=== PATIENT | male | born 1970 | race Hispanic/Latino ===

== ENCOUNTER 2018-10-06 10:16 | Day surgery (SDC) | payer BC ==
--- NOTE | 2018-10-04 17:11 | EKG ---
Test Date: 2018-10-04 Test Time: 12:36:23 Interior Specialist: IRENE MEASUREMENT RESULTS: Intervals: Rate: 65 CT: 158 QRSD: 106 QT: 402 QTc: 418 Diamond: P: -2 CT: 158 QRS: -39 T: 42 INTERPRETIVE STATEMENTS: Normal sinus rhythm Left axis deviation Abnormal ECG No previous ECG available for comparison Electronically Signed On 10-04-18 17:10:27 CDT by Westley Wallis
[2018-10-06] MEDS: OXYMETAZOLINE HCL 0.05% 15ML NAS ONE ×3 (10:35→10:47)
[2018-10-06] MEDS ORDERED: Ringers Lactate 1,000 ML IV ONE ×2 (10:43→14:30)
--- OUTSIDE RECORDS SUMMARY | 2018-10-06 10:46 | XMS REPORT | Clinical Summary ---
:1970 Author Organization [facility] Address [address] [place] [address] Care Team Providers Name Role Phone Jun Laws MD Primary Care Provider Allergies Not on File Medications Not on file Active Problems Not on file Encounters Date Type Specialty Care Team Description 03/02/2018 Hospital Encounter Radiology Brandon Johnston MD New daily persistent headache 03/02/2018 Transcribe Orders Access Brandon Johnston MD New daily persistent headache (Primary Dx) after 10/05/2017 Social History Tobacco Use Types Packs/Day Years Used Date Never Assessed Sex Assigned at Date Recorded Not on file Job Start Date Occupation Industry Not on file Not on file Not on file Travel History Travel Start Travel End No recent travel history available. Last Filed Vital Signs Not on file Plan of Treatment Health Maintenance Due Date Last Done Comments INFLUENZA VACCINE 01/19/2019 Procedures Procedure Name Priority Date/Time Associated Diagnosis Comments CT HEAD WO CONTRAST Routine 03/02/2018 8:15 PM New daily persistent Results for this CDT headache procedure are in the results section. after 10/05/[address] Head Wo Contrast (03/02/2018 8:15 PM CDT) Narrative Performed At EXAMINATION: CT HEAD WO CONTRAST [facility] COMPARISON: None CLINICAL HISTORY G44.52 New daily persistent headache (ndph), g44.52. TECHNIQUE: Non-contrast CT scan of the head with thin-section contiguous transaxial images from the skull base to the vertex. CT scans are performed using radiation dose reduction techniques. Technical factors are evaluated and adjusted to ensure appropriate moderation of exposure. Automated dose management technology is applied to adjust radiation exposure while achieving a highly diagnostic quality image. FINDINGS: Nonenhanced emergency cranial CT was performed at approximately 1917 hours. There is occipital craniotomy. 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 There is encephalization the bilateral cerebellar hemispheres with volume loss. There is compensatory atrophic dilatation of the fourth ventricle. Supratentorially, there is a right lateral ventricular shunt catheter entering via right parietal solitario hole. The lateral and third ventricles are slitlike possibly on the basis of over shunting. There is suspicion of minimal subdural hygroma overlying the high right frontoparietal vertex. The catheter fragment is seen in the right frontal white matter with surrounding encephalomalacia. There is no midline shift. IMPRESSION: Postoperative changes related to related to clipping of a left PICA aneurysm. Atrophic changes in the cerebellum with volume loss. Status post shunting of the right lateral ventricle with slitlike ventricular system suggestive of over shunting. Suspicion of minimal segment dural hygroma overlying the right frontoparietal cortex without mass effect. Small catheter fragment in the right frontal white matter with surrounding and subtle malacic changes. No acute hemorrhage or midline shift. [facility]-[id number] Procedure Note [facility], Radiology Results Incoming - 03/02/2018 8:21 PM CDT EXAMINATION: CT HEAD WO CONTRAST COMPARISON: None CLINICAL HISTORY G44.52 New daily persistent headache (ndph), g44.52. TECHNIQUE: Non-contrast CT scan of the head with thin-section contiguous transaxial images from the skull base to the vertex. CT scans are performed using radiation dose reduction techniques. Technical factors are evaluated and adjusted to ensure appropriate moderation of exposure. Automated dose management technology is applied to adjust radiation exposure while achieving a highly diagnostic quality image. FINDINGS: Nonenhanced emergency cranial CT was performed at approximately 1917 hours. There is occipital craniotomy. 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 There is encephalization the bilateral cerebellar hemispheres with volume loss. There is compensatory atrophic dilatation of the fourth ventricle. Supratentorially, there is a right lateral ventricular shunt catheter entering via right parietal solitario hole. The lateral and third ventricles are slitlike possibly on the basis of over shunting. There is suspicion of minimal subdural hygroma overlying the high right frontoparietal vertex. The catheter fragment is seen in the right frontal white matter with surrounding encephalomalacia. There is no midline shift. IMPRESSION: Postoperative changes related to related to clipping of a left PICA aneurysm. Atrophic changes in the cerebellum with volume loss. Status post shunting of the right lateral ventricle with slitlike ventricular system suggestive of over shunting. Suspicion of minimal segment dural hygroma overlying the right frontoparietal cortex without mass effect. Small catheter fragment in the right frontal white matter with surrounding and subtle malacic changes. No acute hemorrhage or midline shift. [facility]-[id number] Performing Organization Address City/State/Zipcode Phone Number [facility] [address] [place] [address] after 10/05/2017 Insurance Payer Benefit Plan / Group Subscriber ID Type Phone Address AETNA AETNA PPO OPEN CHOICE xxxxxxxxxx PPO Advance Directives Patient has advance care planning documents on file. For more information, please contact:Kelton Rhodes[address] [place] [address]
[2018-10-06] MEDS ORDERED: NA CHLORIDE 0.9% 500 ML ONE (11:51)
[2018-10-06] MEDS ORDERED: LIDOCAINE 1% W/EPI 1:100,000 MDV 50 ML VIAL ONE (11:51)
[2018-10-06] MEDS ORDERED: OXYMETAZOLINE HCL 0.05% 15ML NAS ONE ×2 (11:51→12:23)
[2018-10-06] MEDS ORDERED: PROPOFOL 200 MG/20 ML VIAL IV ONE (12:00)
[2018-10-06] MEDS ORDERED: FENTANYL CITR 100 MCG/2 ML ONE (12:00)
[2018-10-06] MEDS ORDERED: MIDAZOLAM HCL 2 MG/2 ML INJ ONE (12:01)
[2018-10-06] MEDS ORDERED: ROCURONIUM 50 MG/5 ML VIAL IV ONE (12:01)
[2018-10-06] MEDS ORDERED: LIDOCAINE 2% MPF 5 ML VIAL ONE (12:01)
[2018-10-06] MEDS ORDERED: FENTANYL CITR 250 MCG/5 ML ONE (12:10)
[2018-10-06] MEDS ORDERED: LIDOCAINE 2%-JELLY **30 ML TUBE ONE (12:16)
[2018-10-06] MEDS ORDERED: NS 0.9% VIAL 10 ML ONE (13:20)
[2018-10-06] MEDS ORDERED: Phenylephrine HCl 10 MG/ML 1 ML VIAL ONE (13:20)
[2018-10-06] MEDS ORDERED: ONDANSETRON 4 MG/2 ML VIAL ONE (15:04)
[2018-10-06] MEDS ORDERED: PROMETHAZINE 25 MG/ML VIAL ONE (15:56)
[2018-10-06] MEDS: HYDROMORPHONE HCL 1 MG/ML INJ ONE ×2 (16:04→16:09)
[2018-10-06 18:44] VITALS: BP 137/80; TEMP 98.7
[2018-10-06 18:45] VITALS: O2SAT 97
--- NOTE | 2018-10-07 07:38 | P.BOP ---
Preoperative diagnosis: CRSwNP Postoperative diagnosis: same Primary procedure: R NE w/ total ethmoid with sphenoid and removal of tissue Secondary procedure: R NE w/ max with tissue removal Other procedure(s): L NE w/ max and total ethmoid; use of Darudar CT navigation Aquaculture Farmer: NONE,NONE Specimen: B sinus contents, culture R nasal cavity Findings: severe inflammtion and infection Anesthesia: General Complications: None Implants: Propel contour to R sphenoid, Propel to B ethmoid Fluids & blood products: see bon. record Transferred to: Recovery Room Condition: Good
--- NOTE | 2018-10-08 14:15 | OP ---
Date of Procedure: 10/06/2018 Surgeon: Nadya Colindres MD Cash Poster: None. Preoperative Diagnoses: Chronic rhinosinusitis with polyps. Postoperative Diagnoses: Chronic rhinosinusitis with polyps. Procedures Performed: 1.Left maxillary antrostomy. 2.Left total ethmoidectomy. 3.Right maxillary antrostomy with tissue removal. 4.Right total ethmoidectomy with sphenoidotomy including removal of tissue from sphenoid sinus. 5.CT navigation, cranial, extradural. Indication For Procedure: Mr. Alegria has a long history of large maxillary polyp clinically concerni ng for an antral choanal polyp. He was treated with maximal medical therapy and improved moderately, but without complete resolution of his symptoms. He re-presented earlier this year with persistent and recurrent symptoms. He was treated with maximal medical therapy in July and underwent post-t reatment CT scan demonstrating persistent opacification of the right sphenoid, ethmoid, and maxillary sinuses, as well as the left ethmoid sinuses. The risks, benefits, and alternatives were discussed with the patient who agreed to proceed. Description Of Procedure: The patient was brought to the operating room. He was placed under genera l anesthesia via oral endotracheal tube. The head of bed was turned 90 degrees. The nasal hairs wer e trimmed and the nasal cavity was packed with Afrin-soaked pledgets. Upon placement of the pledgets , significant mucopurulent secretions were noted, and a culture was collected prior to the placement of the pledgets. The [employer] headpiece was secured to the patient's forehead and the post-treatment CT scan was loaded into the system. Registration was performed by surface matching with the laser p ointer and accuracy was confirmed by [id number] matching including the tip of the nose, the base of the columella, and the bilateral medial and lateral canthi as well as the glabella, and accuracy w as felt to be very good. The 0-degree endoscope was then used to perform a nasal endoscopy. The lef t side was examined first. The septum was mildly deviated to the left, but no septoplasty was requir ed. There were mild purulent secretions from the middle meatus. After suctioning, the middle turbin ate was medialized. The left middle turbinate was noted to have a riley, which was opacified. A si ckle knife was used to make an incision through the anterior aspect. Endoscopic scissors were used t o cut superiorly and inferiorly along the riley and a Blakesley was used to remove the lateral aspec t of the riley. The mucosa within the riley bullosa was noted to be significantly edematous. The maxillary antrostomy was then created by removal of the uncinate process using the backbiter and 90-d egree Blakesley. There was an accessory ostium and removal of the bridging tissue between the access ory os and natural os was accomplished using the 90-degree Blakesley. After opening of the sinus, e left maxillary mucosa was noted to be smooth with minimal inflammation and no evidence of polyps. The straight navigation suction and 0 degree endoscope was then used to initiate the left ethmoidecto my. The ethmoid bulla was entered using a curette and bony partitions were removed using straight an d 45-degree Blakesley. Bony partitions were then removed. The patient's ethmoids were then further dissected with the assistance of a 30 and 70 degrees endoscope in order to remove the inflamed tissue s. During removal, there was significantly edematous and inflamed mucosa and copious amounts of thic k purulent material. During dissection, a defect in the lamina papyracea was appreciated. This was noted to be a concern on his preoperative imaging and intraoperative findings were consistent with e preoperative CT scan. With gentle palpation of the globe, the orbital septum in this area appeared to be intact and there was no evidence of orbital flap extending into the sinuses, but further disse ction in this area was performed very carefully in order to avoid impinging on the orbit. The patien t had no significant development of the left frontal recess and after adequate dissection of the ethm oid, the ethmoid cavity was packed with Afrin-soaked pledgets, and attention was turned to the right side. On the right, there was a large polyp which appeared to be coming from the middle meatus which completely obstructed the nasal cavity. This polyp was injected with local anesthetic and was grasp ed at the edge of the middle meatus and removed in order to open up the channel in the nasal cavity. The 0 and 30 degree and 70 degree scopes were then used in visualizing and opening and cleaning out of the right maxillary sinus. There was copious polypoid and very inflamed tissue with excessive naif y thick purulent secretions within the right maxillary sinus. After removal of the polyps using a 90 -degree Blakesley and maxillary utilizer, the maxillary sinus was forcefully irrigated with multiple aliquots of sterile saline in order to remove as much of the purulent debris as feasible. The maxill vicente antrostomy was enlarged by removal of tissue anteriorly in order to provide better access to the anterior-most reaches of the maxillary sinus. The ethmoid partitions were then dissected using a cur ette and bony partitions removed using a straight 45 and 90-degree Blakesley. The navigation suction was used intermittently throughout the procedure in order to help identify the lamina as well as the skull base superiorly. After completion of the ethmoidectomy, a 70-degree scope was used for visual ization of the frontal sinus. The frontal sinus' natural opening appeared to be adequate without sig nificant evidence of inflammation or extension of polypoid tissue into this area, therefore, no forma l frontal sinusotomy was performed in this case. Attention was then turned to the sphenoid. Using a transethmoidal approach, the os of the sphenoid was identified using the navigation suction. There was pus and copious amounts of polypoid tissue within the sinus. The sinus ostium was enlarged and p olypoid tissue removed using a microdebrider. After adequate removal of the polypoid tissue, the rem aining lining of the sphenoid sinus was significantly inflamed and swollen, but decision was made not to de-mucosalize the sinus in order to avoid extensive crusting or prolonged healing. The sphenoid sinus was copiously irrigated with multiple aliquots of sterile saline until the drainage appeared cl ear. Afrin-soaked pledgets were applied intermittently throughout the case in order to control bleed ing as necessary. After completion of the dissection, all the pledgets were then removed and the are a was carefully examined. A Propel steroid eluting stent was placed within the left ethmoid cavity i n order to apply a steroid into the mucosa and reduce the degree of inflammation during the initial p ostop period. The stent also acted to stabilize and medialize the middle turbinate, which was somewh at floppy after resection of the riley bullosa and dissection of the anterior and posterior ethmoids . On the right side due to the degree of inflammation at and within the sphenoid sinus, a Propel Con tour stent was placed at the sphenoid os in order to provide local steroid delivery as well as a phys ical barrier to prevent contraction of said sphenoid os. The Contour stent was loaded into the stand cal Propel delivery device in order to be placed within the sphenoid. Finally, a second standard Pro pel stent was placed within the right ethmoid to stabilize the right middle turbinate and prevent lat eralization as well as provide local drug delivery. After completion of the procedure, the patient's globes were examined by palpation. There was no excessive firmness or proptosis noted. The pupils were equal, round, and reactive. The nasopharynx was thoroughly suctioned. The patient was returned to care of Anesthesia for awakening extubation, which proceeded without difficul ty. LÁZARO/ALFREDO Voice ID: [id number] Report ID: [id number]
== END 2018-10-06 18:00 | disposition home or self-care (01) ==
LOC: OR 10:16
PROVIDERS: ATTEND Otolaryngology
PROC: 0NBF4ZZ Excision of Right Ethmoid Bone, Percutaneous Endoscopic Approach (ICD-10-PCS; 2018-10-06)
PROC: 09BQ8ZZ Excision of Right Maxillary Sinus, Via Natural or Artificial Opening Endoscopic (ICD-10-PCS; 2018-10-06)
PROC: 09BW8ZZ Excision of Right Sphenoid Sinus, Via Natural or Artificial Opening Endoscopic (ICD-10-PCS; 2018-10-06)
PROC: 09BR8ZZ Excision of Left Maxillary Sinus, Via Natural or Artificial Opening Endoscopic (ICD-10-PCS; 2018-10-06)
PROC: 09BX8ZZ Excision of Left Sphenoid Sinus, Via Natural or Artificial Opening Endoscopic (ICD-10-PCS; 2018-10-06)
PROC: 8E09XBZ Computer Assisted Procedure of Head and Neck Region (ICD-10-PCS; 2018-10-06)
PROC: 0NBG4ZZ Excision of Left Ethmoid Bone, Percutaneous Endoscopic Approach (ICD-10-PCS; principal; 2018-10-06 12:00)
DX: J32.4 Chronic pansinusitis (principal); J33.8 Other polyp of sinus
CPT/HCPCS: 87070; 87077; 87186; 87205; 88304; 88305; 93005; J1170; J2250; J2370; J2405; J2550; J2704; J3010

== ENCOUNTER 2018-10-09 17:23 | Observation (INO) | payer BC ==
--- OUTSIDE RECORDS SUMMARY | 2018-10-09 17:26 | XMS REPORT | Clinical Summary ---
:1970 Author Organization [facility] [employer] Address [address] [place] [address] Care Team Providers Name Role Phone Jun Laws MD Primary Care Provider Allergies Not on File Medications Not on file Active Problems Not on file Encounters Date Type Specialty Care Team Description 03/02/2018 Hospital Encounter Radiology Brandon Johnston MD New daily persistent headache 03/02/2018 Transcribe Orders Access Brandon Johnston MD New daily persistent headache (Primary Dx) after 10/08/2017 Social History Tobacco Use Types Packs/Day Years [...] procedure are in the results section. after 10/08/[address] Head Wo Contrast (03/02/2018 8:15 [...] changes. No acute hemorrhage or midline shift. [facility]-[id number] Procedure Note [facility], Radiology Results Incoming - 03/02/2018 8:21 PM [...] changes. No acute hemorrhage or midline shift. [facility]-[id number] Performing Organization Address City/State/Zipcode Phone Number [facility] [address] [place] [address] after 10/08/2017 Insurance Payer Benefit Plan / Group Subscriber ID Type Phone Address AETNA AETNA PPO OPEN CHOICE xxxxxxxxxx PPO Advance Directives Patient has advance care planning documents on file. For more information, please contact:Kelton Rhodes[address] [place] [address]
--- NOTE | 2018-10-09 18:50 | EDPHYS ---
Physician Documentation [facility] Name: Moises Alegria Age: 48 yrs Sex: Male : 1970 Arrival Date: 10/09/2018 Time: 17:26 Bed 30 Private MD: Nadya Colindres J ED Physician Duy Solomon HPI: 10/09 18:43 This 48 yrs old Male presents to ER via Ambulatory with complaints of Post jovon Surgical Pain. 18:43 The patient is experiencing pain. Onset: The symptoms/episode began/occurred 3 day(s) jovon ago. Aggravated by light, opening eye, pressure. Associated signs and symptoms: Pertinent positives: headache, runny nose. The patient presents with a foreign body, located in both nares nasal trauma, from surgery . Modifying factors: The symptoms are alleviated by lying down, the symptoms are aggravated by blowing nose, sitting up. Associated signs and symptoms: Loss of consciousness: the patient experienced no loss of consciousness, Pertinent positives: lightheadedness. Historical: - Allergies: 17:34 No Known Allergies; sv - PMHx: 17:34 Polycystic kidney disease; Hypertension; Grade 4 aneurysm; sv - PSHx: 17:34 [employer]AY [employer] shunt; sv - Immunization history:: Adult Immunizations up to date. - Social history:: Smoking status: Patient/guardian denies using tobacco. - Family history:: not pertinent. - Ebola Screening: : Patient negative for fever greater than or equal to 101.5 degrees Fahrenheit, and additional compatible Ebola Virus Disease symptoms Patient denies exposure to infectious person Patient denies travel to an Ebola-affected area in the 21 days before illness onset. ROS: 18:43 Constitutional: Negative for fever, chills, and weight loss, ENT: Negative for injury, jovon pain, and discharge, Neck: Negative for injury, pain, and swelling, Cardiovascular: Negative for chest pain, palpitations, and edema, Respiratory: Negative for shortness of breath, cough, wheezing, and pleuritic chest pain, Abdomen/GI: Negative for abdominal pain, nausea, vomiting, diarrhea, and constipation, Back: Negative for injury and pain, : Negative for injury, bleeding, discharge, and swelling, MS/Extremity: Negative for injury and deformity, Skin: Negative for injury, rash, and discoloration, Psych: Negative for depression, anxiety, suicide ideation, homicidal ideation, and hallucinations, Allergy/Immunology: Negative for hives, rash, and allergies, Hematologic/Lymphatic: Negative for swollen nodes, abnormal bleeding, and unusual bruising. 18:43 Eyes: Positive for pain, swelling, of the right upper eyelid, right outer canthus, right inner canthus and right lower eyelid. Exam: 18:43 Constitutional: This is a well developed, well nourished patient who is awake, alert, jovon and in no acute distress. Head/Face: Normocephalic, atraumatic. Neck: Trachea midline, no thyromegaly or masses palpated, and no cervical lymphadenopathy. Supple, full range of motion without nuchal rigidity, or vertebral point tenderness. No Meningismus. Chest/axilla: Normal chest wall appearance and motion. Nontender with no deformity. No lesions are appreciated. Cardiovascular: Regular rate and rhythm with a normal S1 and S2. No gallops, murmurs, or rubs. Normal PMI, no JVD. No pulse deficits. Respiratory: Lungs have equal breath sounds bilaterally, clear to auscultation and percussion. No rales, rhonchi or wheezes noted. No increased work of breathing, no retractions or nasal flaring. Abdomen/GI: Soft, non-tender, with normal bowel sounds. No distension or tympany. No guarding or rebound. No evidence of tenderness throughout. Back: No spinal tenderness. No costovertebral tenderness. Full range of motion. Male : Normal genitalia with no discharge or lesions. Skin: Warm, dry with normal turgor. Normal color with no rashes, no lesions, and no evidence of cellulitis. MS/ Extremity: Pulses equal, no cyanosis. Neurovascular intact. Full, normal range of motion. Neuro: Awake and alert, GCS 15, oriented to person, place, time, and situation. Cranial nerves II-XII grossly intact. Motor strength 5/5 in all extremities. Sensory grossly intact. Cerebellar exam normal. Normal gait. Psych: Awake, alert, with orientation to person, place and time. Behavior, mood, and affect are within normal limits. 18:43 Eyes: Pupils: no acute changes, equal, round, and reactive to light and accomodation, Extraocular movements: intact throughout, Conjunctiva: normal, no acute changes, Corneas: are normal. 18:43 ENT: Nose: Nasal mucosa: edematous, erythematous, Mouth: Oral mucosa: normal, pink and intact, moist, Gums: normal with healthy appearance, Tongue: is normal, drooling, is not appreciated. 18:47 Neck: Trachea: is midline with no obvious abnormalities, no acute changes, jovon ROM/movement: is normal, no acute changes, Meningeal signs: are not present, Kernig's sign is negative, Brudzinski's sign is negative. Vital Signs: 17:34 BP 150 / 99; Pulse 93; Resp 18; Temp 98.7; Pulse Ox 97% ; Weight 113.4 kg; Height 5 ft. sv 10 in. (177.80 cm); Pain 8/10; 20:19 BP 136 / 101 LA Supine; Pulse 81; Resp 18 S; Pulse Ox 97% on R/A; rv 17:34 Body Mass Index 35.87 (113.40 kg, 177.80 cm) sv MDM: 18:25 Patient medically screened. [facility] 18:43 Data reviewed: vital signs, nurses notes, lab test result(s). [facility] 10/09 18:40 Order name: CBC with Diff; Complete Time: 20:17 [facility] 10/09 18:40 Order name: Comprehensive Metabolic Panel; Complete Time: 20:17 [facility] Administered Medications: 19:20 Drug: NS 0.9% 500 ml Route: IV; Rate: bolus; Site: right antecubital; rv 19:31 Follow up: IV Status: Completed infusion; IV Intake: 500ml rv 19:20 Drug: fentaNYL (PF) 25 mcg Route: IVP; Site: right antecubital; rv 20:20 Follow up: Response: Pain is unchanged, physician notified rv 19:20 Drug: Zofran 4 mg Route: IVP; Site: right forearm; rv 20:20 Follow up: Response: No adverse reaction rv 19:28 Drug: vancoMYCIN 1 grams Route: IVPB; Infused Over: 2 hrs; Site: right forearm; rv 20:21 Follow up: IV Status: Completed infusion; IV Intake: 250ml rv 19:31 Drug: NS 0.9% 1000 ml Route: IV; Rate: 125 ml/hr; Site: right forearm; rv 20:20 Follow up: IV Status: Infusion continued upon admission; IV Intake: 250ml rv 19:32 Drug: fentaNYL (PF) 25 mcg Route: IVP; Site: right forearm; rv 20:20 Follow up: Response: Pain is unchanged, physician notified; ICE PACK APPLIED rv 20:19 Drug: Zosyn 3.375 grams Route: IVPB; Infused Over: 60 mins; Site: right forearm; rv 20:21 Follow up: IV Status: Infusion continued upon admission rv 20:21 Not Given (Duplicate Order): NS 0.9% 1000 ml IV at 125 ml/hr continuous rv Disposition: 10/09/18 18:49 Hospitalization ordered by Nadya Colindres for Inpatient Admission. Preliminary diagnosis are Acute sinusitis - sp polypectomy, sinus surgery, Ocular pain, right eye. - Bed requested for Telemetry/MedSurg (Inpatient). - Status is Inpatient Admission. rv - Condition is Fair. - Problem is new. - Symptoms have improved. UTI on Admission? No Signatures: Dispatcher [employer] Nadya Andersen, RN RN Duy Gonzalez MD MD cha Roszak, Josh, PA PA [id number] Garcia, Cindy, RN RN Carlin Fonseca RN RN rv Corrections: (The following items were deleted from the chart) 20:11 18:49 Hospitalization Ordered by Nadya Colindres MD for Inpatient Admission. cg Preliminary diagnosis is Acute sinusitis - sp polypectomy, sinus surgery; Ocular pain, right eye. Bed requested for Telemetry/MedSurg (Inpatient). Status is Inpatient Admission. Condition is Fair. Problem is new. Symptoms have improved. UTI on Admission? No. [facility] 20:34 20:11 10/09/2018 18:49 Hospitalization Ordered by Nadya Colindres MD for Inpatient rv Admission. Preliminary diagnosis is Acute sinusitis - sp polypectomy, sinus surgery; Ocular pain, right eye. Bed requested for Telemetry/MedSurg (Inpatient). Status is Inpatient Admission. Condition is Fair. Problem is new. Symptoms have improved. UTI on Admission? No. cg
--- NOTE | 2018-10-09 18:50 | ER ---
Nurse's Notes [facility] Name: Moises Alegria Age: 48 yrs Sex: Male : 1970 Arrival Date: 10/09/2018 Time: 17:26 Bed 30 Private MD: Nadya Colindres J Diagnosis: Acute sinusitis-sp polypectomy, sinus surgery;Ocular pain, right eye Presentation: 10/09 17:32 Presenting complaint: Patient states: Dr Colindres performed surgery on having a sv nasal polyp removed and saw her today and sent him here for IV abx. c/o right eye swelling/pain x 2 days. Transition of care: patient was not received from another setting of care. Onset of symptoms was October 07, 2018. Care prior to arrival: None. 17:32 Method Of Arrival: Ambulatory sv 17:32 Acuity: VICK 3 sv 19:22 Risk Assessment: Do you want to hurt yourself or someone else? Patient reports no rv desire to harm self or others. Initial Sepsis Screen: Does the patient meet any 2 criteria? No. Patient's initial sepsis screen is negative. Does the patient have a suspected source of infection? No. Patient's initial sepsis screen is negative. Historical: - Allergies: 17:34 No Known Allergies; sv - PMHx: 17:34 Polycystic kidney disease; Hypertension; Grade 4 aneurysm; sv - PSHx: 17:34 [employer] shunt; sv - Immunization history:: Adult Immunizations up to date. - Social history:: Smoking status: Patient/guardian denies using tobacco. - Family history:: not pertinent. - Ebola Screening: : Patient negative for fever greater than or equal to 101.5 degrees Fahrenheit, and additional compatible Ebola Virus Disease symptoms Patient denies exposure to infectious person Patient denies travel to an Ebola-affected area in the 21 days before illness onset. Screenin:22 Abuse screen: Denies threats or abuse. Denies injuries from another. Nutritional rv screening: No deficits noted. Tuberculosis screening: No symptoms or risk factors identified. Fall Risk None identified. Assessment: 18:23 General: Appears in no apparent distress. uncomfortable, Behavior is calm, cooperative. rv Pain: Complains of pain in right eye. Neuro: Level of Consciousness is awake, alert, obeys commands, Oriented to person, place, time, situation. Cardiovascular: Capillary refill < 3 seconds. Respiratory: Airway is patent. GI: No signs and/or symptoms were reported involving the gastrointestinal system. : No signs and/or symptoms were reported regarding the genitourinary system. EENT: Reports pain in right eye. Derm: Skin is intact. Vital Signs: 17:34 BP 150 / 99; Pulse 93; Resp 18; Temp 98.7; Pulse Ox 97% ; Weight 113.4 kg; Height 5 ft. sv 10 in. (177.80 cm); Pain 8/10; 20:19 BP 136 / 101 LA Supine; Pulse 81; Resp 18 S; Pulse Ox 97% on R/A; rv 17:34 Body Mass Index 35.87 (113.40 kg, 177.80 cm) sv ED Course: 17:26 Patient arrived in ED. as 17:26 Nadya Colindres MD is Private Physician. as 17:33 Triage completed. sv 17:34 Arm band placed on. sv 18:22 Carlin Fonseca RN is Primary Nurse. rv 18:25 Duy Solomon MD is Attending Physician. jovon 18:48 Nadya Colindres MD is Hospitalizing Provider. jovon 19:00 Inserted saline lock: 20 gauge in right forearm, using aseptic technique. Blood rv collected. 19:22 Patient has correct armband on for positive identification. Bed in low position. Call rv light in reach. Side rails up X 1. Pulse ox on. NIBP on. 20:18 No provider procedures requiring assistance completed. Patient admitted, IV remains in rv place. Administered Medications: 19:20 Drug: NS 0.9% 500 ml Route: IV; Rate: bolus; Site: right antecubital; rv 19:31 Follow up: IV Status: Completed infusion; IV Intake: 500ml rv 19:20 Drug: fentaNYL (PF) 25 mcg Route: IVP; Site: right antecubital; rv 20:20 Follow up: Response: Pain is unchanged, physician notified rv 19:20 Drug: Zofran 4 mg Route: IVP; Site: right forearm; rv 20:20 Follow up: Response: No adverse reaction rv 19:28 Drug: vancoMYCIN 1 grams Route: IVPB; Infused Over: 2 hrs; Site: right forearm; rv 20:21 Follow up: IV Status: Completed infusion; IV Intake: 250ml rv 19:31 Drug: NS 0.9% 1000 ml Route: IV; Rate: 125 ml/hr; Site: right forearm; rv 20:20 Follow up: IV Status: Infusion continued upon admission; IV Intake: 250ml rv 19:32 Drug: fentaNYL (PF) 25 mcg Route: IVP; Site: right forearm; rv 20:20 Follow up: Response: Pain is unchanged, physician notified; ICE PACK APPLIED rv 20:19 Drug: Zosyn 3.375 grams Route: IVPB; Infused Over: 60 mins; Site: right forearm; rv 20:21 Follow up: IV Status: Infusion continued upon admission rv 20:21 Not Given (Duplicate Order): NS 0.9% 1000 ml IV at 125 ml/hr continuous rv Intake: 19:31 IV: 500ml; Total: 500ml. rv 20:20 IV: 250ml; Total: 750ml. rv 20:21 IV: 250ml; Total: 1000ml. rv Outcome: 18:49 Decision to Hospitalize by Provider. jovon 20:18 Admitted to Med/surg accompanied by nurse, via wheelchair, room 221, with chart, Report rv called to [facility] 20:18 Condition: stable 20:18 Instructed on the need for admit, Demonstrated understanding of instructions. 20:34 Patient left the ED. rv Signatures: Nadya Campos, RN RN Duy Gonzalez MD MD cha Martinez, Amelia as Vicente, Ronaldo, RN RN rv
[2018-10-09] MEDS ORDERED: VANCOMYCIN 1 GM/VIAL ONE ×2 (19:04→22:33)
[2018-10-09] MEDS ORDERED: ONDANSETRON 4 MG/2 ML VIAL ONE (19:04)
[2018-10-09] MEDS ORDERED: PIPER/TAZO/NS 3.375gm 3.375 GM/100 ML BAG ONE ×2 (19:04→20:36)
[2018-10-09] MEDS ORDERED: NA CHLORIDE 0.9% 1,000 ML ONE (19:04)
[2018-10-09] MEDS ORDERED: NA CHLORIDE 0.9% 250 ML ONE ×2 (19:04→22:35)
[2018-10-09] MEDS ORDERED: FENTANYL CITR 100 MCG/2 ML ONE (19:04)
[2018-10-09 19:19] LABS: Absolute Lymphocytes (CBC) 1.3 K/uL (0.7-4.9); Absolute Monocytes 0.7 K/uL (0.1-1.3); Absolute Neutrophil 7.4 K/uL (1.8-8.0); Basophils % 0.8 % (0-1.3); Eosinophils % 2.6 % (0-4.4); Hematocrit 41.1 % (39.6-49.0); Lymphocytes % 13.7 % (15.3-44.8); MPV 8.2 fL (7.6-11.3); Monocytes % 7.1 % (3.3-12.3); RBC Red Blood Cell Count 4.72 M/uL (4.33-5.43)
[2018-10-09 19:35] LABS: Albumin 3.6 g/dL (3.4-5.0); Bilirubin Total 0.5 mg/dL (0.2-1.0); Potassium 3.5 mmol/L (3.5-5.1); Protein, Total 8.1 g/dL (6.4-8.2)
[2018-10-09] MEDS ORDERED: ACETAMINOPHEN 500 MG TAB PO PRN (20:41)
[2018-10-09] MEDS ORDERED: ONDANSETRON 4 MG/2 ML VIAL IV PRN (20:41)
[2018-10-09 20:54] VITALS: BMI 35.7
[2018-10-09] MEDS: DEXAMETHASONE 10 MG/ML VIAL IV SCH (21:48)
[2018-10-09] MEDS: NA CHLORIDE 0.9% 1,000 ML IV SCH (21:48)
[2018-10-09] MEDS: FAMOTIDINE 20 MG/2 ML VIAL IV SCH (21:48)
[2018-10-09] MEDS ORDERED: VANCOMYCIN/NS 1 gm 1 GM/250 ML BAG IVPB ONE (22:30)
[2018-10-10] MEDS: PIPER/TAZO/NS 3.375gm 3.375 GM/100 ML BAG IVPB SCH ×2 (00:38→05:29)
[2018-10-10] MEDS: MORPHINE 4 MG/ML SYR IV PRN ×2 (00:43→06:44)
[2018-10-10 03:25] VITALS: O2SAT 96
[2018-10-10] MEDS: DEXAMETHASONE 10 MG/ML VIAL IV SCH ×2 (05:28→12:55)
[2018-10-10 05:58] LABS: Absolute Lymphocytes (CBC) 0.8 K/uL (0.7-4.9); Absolute Monocytes 0.2 K/uL (0.1-1.3); Absolute Neutrophil 7.2 K/uL (1.8-8.0); Basophils % 0.5 % (0-1.3); Eosinophils % 0.1 % (0-4.4); Hematocrit 37.1 % (39.6-49.0); Lymphocytes % 9.3 % (15.3-44.8); MPV 8.1 fL (7.6-11.3); Monocytes % 2.5 % (3.3-12.3); RBC Red Blood Cell Count 4.27 M/uL (4.33-5.43)
[2018-10-10 06:13] LABS: Potassium 4.2 mmol/L (3.5-5.1)
[2018-10-10 06:38] LABS: Blood Morphology Comment NOT SEEN (NOT SEEN); Platelet Estimate DECR; Urine White Blood Cell Casts OK
[2018-10-10] MEDS: FAMOTIDINE 20 MG/2 ML VIAL IV SCH (08:39)
[2018-10-10] MEDS ORDERED: Levofloxacin500mg IV 500 MG/100 ML BAG IV SCH (10:00)
[2018-10-10] MEDS: NA CHLORIDE 0.9% 1,000 ML IV SCH (10:24)
--- NOTE | 2018-10-10 13:53 | PN ---
Date of Progress Note: 10/10/2018 Time Of Visit: Approximately 7:45 a.m. Interim History: The patient was admitted last night for IV antibiotics due to Staph aureus and Kleb siella sinusitis with complication of preseptal cellulitis and uncontrolled postoperative pain. Over night, he was treated with vancomycin, Zosyn, IV fluids, as well as morphine as needed for pain. He notes today that his pain is significantly better. The swelling around the right eye is significantl y improved. He feels he is able to open the eye with no difficulty. He denies double vision or any vision changes or blurry vision. He has ambulated to the restroom, but is otherwise asleep in bed ov [facility]. He did tolerate a regular diet this morning. Physical Examination: Vital Signs: Pulse is within normal limits. His blood pressure which was mildly elevated in the 140 s/90s overnight, is better this morning with the most recent blood pressure of 121/77. General: The patient is in no acute distress. He is alert and oriented. HEENT: He has avof-ho-prjwgnv swelling around the right lower eyelid and right upper eyelid. He has very mild ecchymosis of the lateral aspect of his right conjunctiva, which is essentially stable com pared to exam 24 hours earlier. The patient's nares are patent. Face, neck, and oral exam is otherw ise unremarkable. Laboratory Evaluation: On admission, his creatinine was 2.12, this morning is 1.92. Estimated GFR i s stable. BUN remains mildly elevated at 26 and 28. His white count remains normal, but with a left shift. Cultures from the 18, show Staph aureus, Klebsiella and an unidentified gram-negative [facility] final results pending. Plan: We will continue current antibiotic care and reassess the patient later today. If he continue s to do well, we will plan for discharge this evening to resume Levaquin. Intraoperative cultures sh owed that the Staph aureus and Klebsiella pneumoniae strains are both sensitive to Levaquin. The pat ient is encouraged to resume the sinus irrigations and ambulate in the hallway. The plan of care was discussed with the patient and his , who agrees. The patient will likely be discharged later to day and follow up with Dr. Colindres next week as scheduled. LÁZARO/MODL Voice ID: [id number] Report ID: [id number]
[2018-10-10] MEDS ORDERED: ACETAMINOPHEN 325 MG TABLET PO PRN (14:00)
[2018-10-10] MEDS ORDERED: PIPER/TAZO/NS 3.375gm 3.375 GM/100 ML BAG IVPB SCH (15:00)
[2018-10-10 17:14] VITALS: BP 131/77; TEMP 98
--- NOTE | 2018-10-10 17:51 | HP ---
Date of Admission: 10/09/2018 Admission Diagnoses: Preseptal cellulitis, sinusitis. History Of Present Illness: Mr. Alegria is a 48-year-old male with a history of right nasal polyposis extending back greater than 2 years. He underwent functional endoscopic sinus surgery on October 06 and was discharged following surgery to home with prescriptions for Levaquin and tramadol. The patient was doing well on postoperative day 1, but woke up on postoperative day 2 with severe right-sided headache. He contacted me and we discussed alternating Tylenol with tramadol, taking 1 of the medications every 3 hours and was instructed to contact me if his pain was not controlled. I spoke with his approximately 5 p.m. on postoperative day 2 and he was continuing to have significant right-sided pain. A prescription for hydrocodone was given to the patient's , who came to fiber picker the medication. In the youth pastor on postoperative day 3, approximately 6AM, the patient's contacted me regarding persistent uncontrolled pain and severe right-sided headache and due to failure of medical therapy, he was asked to come to the clinic for exam and further evaluation. He was seen in my clinic at approximately 8 a.m. on Wednesday morning postoperative day 3. At that time, he was noted to have mild right periorbital edema without significant erythema. He had very mild chemosis of the lateral conjunctiva. His extraocular movements were intact with no double vision. His pupils were equal, round and reactive. He did not have any significant proptosis. He had mild tenderness of the globe with palpation. Endoscopic exam performed in the clinic demonstrated significant purulence in the right nasal cavity and on further inquiry, it was noted the patient had not obtained the Levaquin, which had been prescribed on the day of surgery. He was performing saline irrigations. At that time, the patient was offered admission to the hospital for IV antibiotics, but he deferred and elected to obtain the previously prescribed Levaquin as soon as the pharmacy opened on that day. He was cautioned to contact me for any worsening of symptoms. At approximately 5 p.m. on Wednesday, the patient's contacted me. She stated that he had taken his first dose of oral Levaquin at approximately 10:30 a.m., but was continuing to have pain and she was concerned that the swelling around the eye was somewhat worse and she was concerned. They were instructed to proceed to the [facility] emergency room with a plan for placement under observation and administration of IV antibiotics and close monitoring. Past Medical History: Polycystic kidney disease, hypertension. Baseline Cr not known by patient Past Surgical Disease: Hernia repair, brain aneurysm, functional endoscopic sinus surgery. Family History: Mother with diabetes and hearing loss. Father with kidney disease. Sister with hearing problem. Brother with cancer, diabetes, hearing loss and liver disease. Social History: The patient is a "social" tobacco user and uses a moderate amount of alcohol. He is currently . His primary care doctor was Dr. Laws in the [facility]. ROS: Reviewed from ER documentation on 10/09 and no changes Allergies: None Home Medications: Levaquin 750mg (1 dose), Tramadol (acute, not chronic), Gallitzin 5mg (acute, non chronic), Tylenol (acute), Cavedilol, Sotolol, Lisinopril Physical Examination: The patient was examined at 8 a.m. on Wednesday morning in the clinic. He was noted to be in mild distress due to headache. At that time, he had right mild- to-moderate periorbital edema including the upper and lower eyelid. His extraocular movements are intact and he denied any double vision. There was trace right lateral ecchymosis on his conjunctiva. He had moderate crusting in the bilateral nares and the nasal mucosa was noted to be in the very early healing stages due to the proximity of the surgery date. The nasal cavity had [id number] purulence and mucus, which was partially suctioned. The mucosal surfaces of the septum and inferior turbinate were friable and the previously placed propel stents were difficult to visualize due to the swelling of the mucosa and the degree of mucus. The scope procedure and suctioning were poorly tolerated by the patient due to pain. Vital Signs: Pulse 93 in the emergency room, blood pressure 150/99, temperature 98.7, pain 8/10 in severity. Laboratory Evaluation: White blood cell count 9.8, hemoglobin and platelet count are within normal limits. He has a mild left shift with 75% neutrophils. His chemistry demonstrates elevated creatinine (2.1) and BUN (24) with GFR of 34. Microbiology from intraoperative sinus cultures collected on the September demonstrate Staph aureus and Klebsiella. Assessment: Right preseptal cellulitis, acute on chronic sinusitis, uncontrolled pain in the postoperative period, noncompliance with the prescribed antibiotic therapy, chronic kidney disease. Plan: The patient will be placed under observation with administration of vancomycin and Zosyn for polymicrobial sinusitis with complications. IV hydration and dexamethasone to aid in swelling, Tylenol and morphine for pain control, and we will reassess progress over the next 24 hours. BRIANNE Voice ID: [id number] MTDD
[2018-10-10] MEDS ORDERED: VANCOMYCIN 2 GM in NA CHLORIDE 0.9% 500 ML IVPB SCH (21:00)
== END 2018-10-10 18:45 | disposition home or self-care (01) ==
LOC: ER 17:23 → ERHOLD 18:55 → INTOOBSV 18:55 → 2ND 20:30
PROVIDERS: ADMIT Otolaryngology; ATTEND Otolaryngology
DX: L03.213 Periorbital cellulitis (principal); B95.61 Methicillin susceptible Staphylococcus aureus infection as the cause of diseases classified elsewhere; B96.1 Klebsiella pneumoniae [K. pneumoniae] as the cause of diseases classified elsewhere; J01.90 Acute sinusitis, unspecified; J32.9 Chronic sinusitis, unspecified; R51 Headache; Q61.3 Polycystic kidney, unspecified; I12.9 Hypertensive chronic kidney disease with stage 1 through stage 4 chronic kidney disease, or unspecified chronic kidney disease; N18.9 Chronic kidney disease, unspecified; Z72.0 Tobacco use; Z80.9 Family history of malignant neoplasm, unspecified; Z83.3 Family history of diabetes mellitus; Z84.1 Family history of disorders of kidney and ureter; Z98.2 Presence of cerebrospinal fluid drainage device; Z91.14 Patient's other noncompliance with medication regimen; Z98.890 Other specified postprocedural states
CPT/HCPCS: 36415; 80048; 80053; 85025; 96365; 96375; 99285; J1100; J2405; J2543; J3010; J3370; J7030

== ENCOUNTER 2018-10-11 23:44 | Inpatient (IN) | payer BC ==
--- OUTSIDE RECORDS SUMMARY | 2018-10-11 23:46 | XMS REPORT | Clinical Summary ---
:1970 Author Organization [employer] Address [address] [place] [address] Care Team Providers Name Role Phone Jun Laws MD Primary Care Provider Allergies Not on File Medications Not on file Active Problems Not on file Encounters Date Type Specialty Care Team Description 03/02/2018 Hospital Encounter Radiology Brandon Johnston MD New daily persistent headache 03/02/2018 Transcribe Orders Access Brandon Johnston MD New daily persistent headache (Primary Dx) after 10/10/2017 Social History Tobacco Use Types Packs/Day Years [...] procedure are in the results section. after 10/10/[address] Head Wo Contrast (03/02/2018 8:15 [...] changes. No acute hemorrhage or midline shift. [facility]-[id number] Procedure Note [facility], Radiology Results Incoming - 03/02/2018 8:21 [...] changes. No acute hemorrhage or midline shift. [facility]-[id number] Performing Organization Address City/State/Zipcode Phone Number [facility] [address] [place] [address] after 10/10/2017 Insurance Payer Benefit Plan / Group Subscriber ID Type Phone Address [employer] A[employer] PPO OPEN CHOICE xxxxxxxxxx PPO Advance Directives Patient has advance care planning documents on file. For more information, please contact:Kelton Rhodes[address] [place] [address]
--- NOTE | 2018-10-12 00:07 | EDPHYS ---
Physician Documentation [facility] Name: Moises Alegria Age: 48 yrs Sex: Male : 1970 Arrival Date: 10/11/2018 Time: 23:45 Bed 16 Private MD: ED Physician Jalil Hager HPI: 10/11 23:58 This 48 yrs old Male presents to ER via Ambulatory with complaints of Eye rn Pain, Eye Swelling. 23:58 The patient is experiencing pain. Onset: The symptoms/episode began/occurred today. rn Duration: the symptoms are continuous. Aggravated by nothing. Alleviated by nothing. Severity of symptoms: At their worst the symptoms were mild in the emergency department the symptoms are unchanged. The patient has experienced a previous episode. Reports recently admitted for eye/face infection by Dr. Colindres, is taking PO levaquin at home, noticed increased pain and swelling around right eye today, called by Dr. Colindres and told to come in. No vision changes, no headache. No fever. No trauma. . Historical: - Allergies: 23:59 No Known Allergies; tl2 - Home Meds: 23:59 Levaquin Oral [Active]; Propranolol Oral [Active]; Triamterene-Hydrochlorothiazid Oral tl2 [Active]; Lisinopril Oral [Active]; - PMHx: 23:59 Grade 4 aneurysm; Hypertension; POLYCYSTIC KIDNEY DISEASE; tl2 - PSHx: 23:59 sinus; tl2 - Immunization history:: Adult Immunizations up to date. - Social history:: Smoking status: Patient uses tobacco products, denies chronic smoking, but will smoke occasionally. - Ebola Screening: : No symptoms or risks identified at this time. - Family history:: not pertinent. - Hospitalizations: : The patient was recently seen at [facility]. ROS: 23:58 Constitutional: Negative for fever, chills, and weight loss, Eyes: + right facial and rn ocular pain ENT: Negative for injury and discharge Cardiovascular: Negative for chest pain, palpitations, and edema, Respiratory: Negative for shortness of breath, cough, wheezing, and pleuritic chest pain, Abdomen/GI: Negative for abdominal pain, nausea, vomiting, diarrhea, and constipation, MS/Extremity: Negative for injury and deformity, Skin: Negative for injury, rash, and discoloration, Neuro: Negative for headache, weakness, numbness, tingling, and seizure. Exam: 23:58 Constitutional: This is a well developed, well nourished patient who is awake, alert, rn and in no acute distress. Head/Face: + mild right periorbital swelling Eyes: Pupils equal round and reactive to light, extra-ocular motions intact. Lids and lashes normal. Conjunctiva and sclera are non-icteric and not injected. Cornea within normal limits. Mild right periorbital swelling, no pain with EOM. ENT: MMM, no stridor Respiratory: No increased work of breathing, no retractions or nasal flaring. Skin: Warm, dry with normal turgor. Normal color with no rashes, no lesions, and no evidence of cellulitis. MS/ Extremity: Pulses equal, no cyanosis. Neurovascular intact. Full, normal range of motion. Equal circumference. Neuro: Awake and alert, GCS 15, oriented to person, place, time, and situation. Cranial nerves II-XII grossly intact. Motor strength 5/5 in all extremities. Sensory grossly intact. Vital Signs: 23:59 BP 140 / 99; Pulse 72; Resp 18; Temp 99.1(O); Pulse Ox 98% on R/A; Weight 113.4 kg; tl2 Height 5 ft. 10 in. (177.80 cm); Pain 5/10; 10/12 01:00 Pulse 61; Resp 18; Pulse Ox 98% on R/A; tl2 02:38 BP 125 / 94; Pulse 57; Resp 18; Pulse Ox 97% on R/A; Pain 3/10; tl2 10/11 23:59 Body Mass Index 35.87 (113.40 kg, 177.80 cm) tl2 MDM: 10/11 23:46 Patient medically screened. rn 10/12 00:03 Differential diagnosis: pre-septal cellulitis, facial cellulitis. Data reviewed: vital rn signs, nurses notes, old medical records, and as a result, I will admit patient. Counseling: I had a detailed discussion with the patient and/or guardian regarding: the historical points, exam findings, and any diagnostic results supporting the discharge/admit diagnosis, the need for further work-up and treatment in the hospital. Admission orders: after a detailed discussion of the patient's condition and case, the admit orders are written by me. ED course: Dr. Colindres called and requested admission to hospital with vancomycin/zosyn. . 10/11 23:58 Order name: CBC with Diff; Complete Time: 01:42 rn 10/11 23:58 Order name: Basic Metabolic Panel; Complete Time: 01:42 rn 10/11 23:58 Order name: Blood Culture Adult (2) rn 10/11 23:58 Order name: Procalcitonin; Complete Time: 01:42 rn 10/11 23:58 Order name: IV Start; Complete Time: 00:31 rn Administered Medications: 00:31 Drug: Zosyn 3.375 grams Route: IVPB; Infused Over: 60 mins; Site: right antecubital; tl2 01:30 Follow up: IV Status: Completed infusion; IV Intake: 100ml tl2 01:04 Drug: [place] 10 mg-325 mg 1 tabs Route: PO; tl2 02:00 Follow up: Response: No adverse reaction; Pain is decreased tl2 01:31 Drug: vancoMYCIN 1 grams Route: IVPB; Infused Over: 2 hrs; Site: right antecubital; tl2 03:46 Follow up: IV Status: Completed infusion; IV Intake: 250ml tl2 02:10 Drug: NS 0.9% 1000 ml Route: IV; Rate: 1000 ml; Site: right antecubital; tl2 03:46 Follow up: IV Status: Completed infusion; IV Intake: 1000ml tl2 Disposition: 10/12/18 00:05 Hospitalization ordered by Nadya Colindres for Inpatient Admission. Preliminary diagnosis is Silvia-orbital cellulitis. - Bed requested for Telemetry/MedSurg (Inpatient). - Status is Inpatient Admission. tl2 - Condition is Stable. - Problem is an ongoing problem. - Symptoms have improved. UTI on Admission? No Signatures: Dispatcher [employer] EDMS Jalil Hager MD MD rn Garcia, Cindy, RN RN cg Knox, Taylor, RN RN tl2 Corrections: (The following items were deleted from the chart) 02:15 00:05 Hospitalization Ordered by Nadya Colindres MD for Inpatient Admission. cg Preliminary diagnosis is Silvia-orbital cellulitis. Bed requested for Telemetry/MedSurg (Inpatient). Status is Inpatient Admission. Condition is Stable. Problem is an ongoing problem. Symptoms have improved. UTI on Admission? No. rn 03:47 02:15 10/12/2018 00:05 Hospitalization Ordered by Nadya Colindres MD for Inpatient tl2 Admission. Preliminary diagnosis is Silvia-orbital cellulitis. Bed requested for Telemetry/MedSurg (Inpatient). Status is Inpatient Admission. Condition is Stable. Problem is an ongoing problem. Symptoms have improved. UTI on Admission? No. cg
--- NOTE | 2018-10-12 00:07 | ER ---
Nurse's Notes [facility] Name: Moises Alegria Age: 48 yrs Sex: Male : 1970 Arrival Date: 10/11/2018 Time: 23:45 Bed 16 Private MD: Diagnosis: Silvia-orbital cellulitis Presentation: 10/11 23:53 Presenting complaint: Patient states: I had sinus surgery on and developed an tl2 infection. I was discharged from the hospital yesterday but today had some swelling and pain in my right eye again and was worried it was going to get worse. Dr. Hager has already spoken with Lakshmi Champion about readmission. Transition of care: patient was not received from another setting of care. Mechanism of Injury: No Mechanism of Injury. The patient denies any loss of vision. Onset of symptoms was October 11, 2018. Risk Assessment: Do you want to hurt yourself or someone else? Patient reports no desire to harm self or others. Initial Sepsis Screen: Does the patient meet any 2 criteria? No. Patient's initial sepsis screen is negative. Does the patient have a suspected source of infection? No. Patient's initial sepsis screen is negative. Care prior to arrival: None. 23:53 Method Of Arrival: Ambulatory tl2 23:53 Acuity: VICK 3 tl2 Triage Assessment: 23:59 General: Appears in no apparent distress. uncomfortable, Behavior is calm, cooperative, tl2 appropriate for age. Pain: Complains of pain in right eye. EENT: slight swelling in right eye. Neuro: Level of Consciousness is awake, alert, obeys commands, Oriented to person, place, time, situation. Cardiovascular: Denies chest pain. Respiratory: Airway is patent Respiratory effort is even, unlabored, Respiratory pattern is regular, symmetrical. GI: No signs and/or symptoms were reported involving the gastrointestinal system. : No signs and/or symptoms were reported regarding the genitourinary system. Derm: Skin is pink, warm \T\ dry. Historical: - Allergies: :59 No Known Allergies; tl2 - Home Meds: 23:59 Levaquin Oral [Active]; Propranolol Oral [Active]; Triamterene-Hydrochlorothiazid Oral tl2 [Active]; Lisinopril Oral [Active]; - PMHx: 23:59 Grade 4 aneurysm; Hypertension; POLYCYSTIC KIDNEY DISEASE; tl2 - PSHx: 23:59 sinus; tl2 - Immunization history:: Adult Immunizations up to date. - Social history:: Smoking status: Patient uses tobacco products, denies chronic smoking, but will smoke occasionally. - Ebola Screening: : No symptoms or risks identified at this time. - Family history:: not pertinent. - Hospitalizations: : The patient was recently seen at [facility]. Screenin/24 00:02 Abuse screen: Denies threats or abuse. Nutritional screening: No deficits noted. tl2 Tuberculosis screening: No symptoms or risk factors identified. Fall Risk None identified. Assessment: 10/11 23:59 General: see triage assessment. tl2 10/12 01:00 Reassessment: Patient appears in no apparent distress at this time. Patient and/or tl2 family updated on plan of care and expected duration. Pain level reassessed. Patient is alert, oriented x 3, equal unlabored respirations, skin warm/dry/pink. pt c/o increased pain, MD notified, new order see MAR. 02:41 Reassessment: Patient appears in no apparent distress at this time. Patient and/or tl2 family updated on plan of care and expected duration. Pain level reassessed. Patient is alert, oriented x 3, equal unlabored respirations, skin warm/dry/pink. Patient states feeling better. 03:45 Reassessment: Patient appears in no apparent distress at this time. Patient and/or tl2 family updated on plan of care and expected duration. Pain level reassessed. Patient is alert, oriented x 3, equal unlabored respirations, skin warm/dry/pink. pt stable for transport to floor. Vital Signs: 10/11 23:59 BP 140 / 99; Pulse 72; Resp 18; Temp 99.1(O); Pulse Ox 98% on R/A; Weight 113.4 kg; tl2 Height 5 ft. 10 in. (177.80 cm); Pain 5/10; 10/12 01:00 Pulse 61; Resp 18; Pulse Ox 98% on R/A; tl2 02:38 BP 125 / 94; Pulse 57; Resp 18; Pulse Ox 97% on R/A; Pain 3/10; tl2 10/11 23:59 Body Mass Index 35.87 (113.40 kg, 177.80 cm) tl2 ED Course: 10/11 23:45 Patient arrived in ED. am2 23:46 Jalil Hager MD is Attending Physician. rn 23:54 Triage completed. tl2 23:59 Arm band placed on right wrist. tl2 04 00:02 Patient has correct armband on for positive identification. Placed in gown. Bed in low tl2 position. Call light in reach. Side rails up X 1. Adult w/ patient. 00:03 Marycarmen Vazquez RN is Primary Nurse. tl2 00:04 Nadya Colindres MD is Hospitalizing Provider. rn 00:31 Inserted saline lock: 22 gauge in right antecubital area, using aseptic technique. tl2 Blood collected. 02:41 No provider procedures requiring assistance completed. Patient admitted, IV remains in tl2 place. Administered Medications: 00:31 Drug: Zosyn 3.375 grams Route: IVPB; Infused Over: 60 mins; Site: right antecubital; tl2 01:30 Follow up: IV Status: Completed infusion; IV Intake: 100ml tl2 01:04 Drug: Vesper 10 mg-325 mg 1 tabs Route: PO; tl2 02:00 Follow up: Response: No adverse reaction; Pain is decreased tl2 01:31 Drug: vancoMYCIN 1 grams Route: IVPB; Infused Over: 2 hrs; Site: right antecubital; tl2 03:46 Follow up: IV Status: Completed infusion; IV Intake: 250ml tl2 02:10 Drug: NS 0.9% 1000 ml Route: IV; Rate: 1000 ml; Site: right antecubital; tl2 03:46 Follow up: IV Status: Completed infusion; IV Intake: 1000ml tl2 Intake: 01:30 IV: 100ml; Total: 100ml. tl2 03:46 IV: 1000ml; Total: 1100ml. tl2 03:46 IV: 250ml; Total: 1350ml. tl2 Outcome: 00:05 Decision to Hospitalize by Provider. rn 02:41 Admitted to Tele accompanied by tech family with patient, via stretcher, room 205, tl2 with chart, Report called to HANSEL Kennedy 02:41 Condition: stable 02:41 Discharge instructions given to patient, family, Instructed on the need for admit. 03:47 Patient left the ED. tl2 Signatures: Jalil Hager MD MD rn Knox, Taylor, RN RN tl2 Sadia Bishop am2 Corrections: (The following items were deleted from the chart) 02:41 02:40 Reassessment: Patient appears in no apparent distress at this time. Patient tl2 and/or family updated on plan of care and expected duration. Pain level reassessed. Patient is alert, oriented x 3, equal unlabored respirations, skin warm/dry/pink. pt c/o increased pain, notified, new order see MAR tl2
[2018-10-12] MEDS ORDERED: VANCOMYCIN 1 GM/VIAL ONE ×2 (00:25→05:09)
[2018-10-12] MEDS ORDERED: NA CHLORIDE 0.9% 250 ML ONE ×2 (00:25→05:17)
[2018-10-12] MEDS ORDERED: PIPER/TAZO/NS 3.375gm 3.375 GM/100 ML BAG ONE ×2 (00:26→06:16)
[2018-10-12 00:58] LABS: Absolute Lymphocytes (CBC) 1.9 K/uL (0.7-4.9); Absolute Monocytes 0.5 K/uL (0.1-1.3); Basophils % 0.7 % (0-1.3); Eosinophils % 1.7 % (0-4.4); Hematocrit 35.6 % (39.6-49.0); Lymphocytes % 24.8 % (15.3-44.8); MPV 8.3 fL (7.6-11.3); Monocytes % 6.2 % (3.3-12.3); RBC Red Blood Cell Count 4.08 M/uL (4.33-5.43)
[2018-10-12] MEDS ORDERED: HYDROCODONE/APAP 10/325 TAB ONE (01:02)
[2018-10-12 01:05] LABS: Potassium 3.4 mmol/L (3.5-5.1)
[2018-10-12] MEDS ORDERED: NA CHLORIDE 0.9% 1,000 ML ONE (02:20)
[2018-10-12] MEDS ORDERED: ONDANSETRON 4 MG/2 ML VIAL IV PRN (03:53)
[2018-10-12] MEDS: NA CHLORIDE 0.9% 1,000 ML IV SCH ×2 (04:17→16:11)
[2018-10-12] MEDS ORDERED: VANCOMYCIN/NS 1 gm 1 GM/250 ML BAG IVPB ONE (05:00)
[2018-10-12 05:36] VITALS: BMI 36.3
[2018-10-12] MEDS ORDERED: PIPER/TAZO/NS 3.375gm 3.375 GM/100 ML BAG IVPB SCH ×2 (06:00→15:00)
--- NOTE | 2018-10-12 08:35 | P.HP ---
Date of Service: 10/12/18 CC: Right eye pain and swelling History Of Present Illness: Mr. Alegria is a 48-year-old male with a history of right nasal polyposis extending back greater than 2 years. He underwent functional endoscopic sinus surgery on October 06 and was discharged following surgery to home with prescriptions for Levaquin and tramadol. The patient had uncontrolled R eye/facial pain and swelling around the R eye and was admitted on Wednesday evening and treated with Vanc and Zosyn for 1 dose until the intraoperative cultures were available. He was noted to have MSSA and Klebsiella. He was switched to Levaquin IV x 1 and was much improved within 24 hours and discharged to home with PO Levaquin. He was doing well through Wednesday afternoon but in the evening, the pain and swelling worsened again. He contacted me at 10PM regarding his change in status and was instructed to go back to the ER for admission for additional IV Abx and further evaluation. Past Medical History: Polycystic kidney disease, hypertension. Baseline Cr not known by patient - patient was noted to have Cr 2.1 at his initial admission on Wednesday evening. Past Surgical Disease: Hernia repair, brain aneurysm, functional endoscopic sinus surgery (October 06). Family History: Mother with diabetes and hearing loss. Father with kidney disease. Sister with hearing problem. Brother with cancer, diabetes, hearing loss and liver disease. Social History: The patient is a "social" tobacco user and uses a moderate amount of alcohol. He is currently . His primary care doctor was Dr. Laws in the [place] area. ROS: Reviewed from ER documentation on 10/11 and no changes this morning Allergies: None Home Medications: Levaquin 750mg, Tramadol (acute, not chronic), [place] 5mg ( acute, non chronic), Tylenol (acute), Cavedilol, Sotolol, Lisinopril Physical Examination: The patient was examined at 8 a.m. on Wednesday morning in the hospital. He was noted to be in mild distress due to headache. At that time, he had right moderate periorbital edema including the upper more than the lower eyelid. This was stable from a photograph taken last night but worse than exam on Wednesday morning. His extraocular movements are intact and he denied any double vision. There was trace right lateral ecchymosis on his conjunctiva which is unchanged. Nasal exam limited by crusting and lack of equipment Vital Signs: Stable, afebrile Laboratory Evaluation: Assessment: Right preseptal cellulitis, acute on chronic sinusitis, uncontrolled pain in the postoperative period, noncompliance with the prescribed antibiotic therapy, chronic kidney disease. Plan: The patient will be placed under observation with administration of vancomycin and Zosyn for polymicrobial sinusitis with complications. IV hydration and dexamethasone to aid in swelling, Tylenol and morphine for pain control, and we will reassess progress over the next 24 hours.
[2018-10-12] MEDS: MORPHINE 4 MG/ML SYR IV PRN ×2 (11:21→16:05)
[2018-10-12] MEDS ORDERED: VANCOMYCIN/NS 1 gm 1 GM/250 ML BAG IVPB SCH (13:00)
[2018-10-12] MEDS: Levofloxacin 750mg IV 750 MG/150 ML BAG IV SCH (17:57)
[2018-10-12] MEDS: DEXAMETHASONE 10 MG/ML VIAL IV SCH (18:00)
[2018-10-12] MEDS ORDERED: METRONIDAZOLE 500mg IVPB 500 MG/100 ML BAG IV SCH ×2 (18:00→21:00)
[2018-10-12] MEDS ORDERED: CEFTRIAXONE/SWI 2gm 2 GM/20 ML SYR IV SCH (21:00)
[2018-10-12] MEDS: DOXYCYCLINE 100 MG in NA CHLORIDE 0.9% 100 ML IVPB SCH (21:06)
[2018-10-12 23:34] LABS: Urine Appearance CLEAR; Urine Bilirubin NEGATIVE (NEG); Urine Blood NEGATIVE (NEG); Urine Color YELLOW; Urine Glucose NEGATIVE (NEG); Urine Protein TRACE (NEG); Urine pH 7.5 (5.0-7.0)
[2018-10-12 23:38] LABS: Urine Microscopic Reflex NO UMIC
[2018-10-13] MEDS: NA CHLORIDE 0.9% 1,000 ML IV SCH ×3 (01:12→15:36)
[2018-10-13] MEDS: DEXAMETHASONE 10 MG/ML VIAL IV SCH ×2 (01:13→10:00)
[2018-10-13] MEDS ORDERED: VANCOMYCIN 2 GM in NA CHLORIDE 0.9% 500 ML IVPB SCH (02:00)
[2018-10-13 06:21] LABS: Absolute Lymphocytes (CBC) 0.8 K/uL (0.7-4.9); Absolute Monocytes 0.1 K/uL (0.1-1.3); Absolute Neutrophil 6.8 K/uL (1.8-8.0); Basophils % 0.5 % (0-1.3); Eosinophils % 0.6 % (0-4.4); Hematocrit 36.2 % (39.6-49.0); Lymphocytes % 9.9 % (15.3-44.8); MPV 8.3 fL (7.6-11.3); Monocytes % 1.3 % (3.3-12.3); RBC Red Blood Cell Count 4.17 M/uL (4.33-5.43)
[2018-10-13 06:28] LABS: Potassium 4.2 mmol/L (3.5-5.1)
[2018-10-13 07:00] LABS: Blood Morphology Comment NOT SEEN (NOT SEEN); Platelet Estimate ADEQ
--- NOTE | 2018-10-13 07:22 | P.PN ---
Subjective Date of Service: 10/13/18 Chief Complaint: eye swelling and R periorbital pain Subjective: Improving Patient received 2 doses of IV decadron 10mg - around 5 PM and 2AM and this morning notes his pain is significantly better and the swelling around the eye is much better Physical Examination - Vital Signs Temperature: 97.6 F Blood Pressure: 124/86 Pulse: 76 Respirations: 19 Pulse Ox (%): 95 - Physical Exam General: Alert, In no apparent distress HEENT: PERRLA, Mucous membr. moist/pink, Other (Right upper eyelid swelling is much improved), EOMI Neck: Supple, No LAD Respiratory: Other (No increased WOB) Cardiovascular: No edema Capillary refill: <2 Seconds Integumentary: No rashes, No breakdown Neurological: Normal speech, Cranial nerves 3-12 intact - Studies Medications List Reviewed: Yes Assessment And Plan - Current Problems (Diagnosis) (1) Preseptal cellulitis of right eye Current Visit: Yes Status: Acute Plan: Continue directed Abx with IV Levaquin and doxycycline based on intraoperative cultures from 10/06. I spoke with Dr Zechariah Snyder regarding this case and his informal recommendation was to continue IV for a full 4 days to ensure good microbiology response prior to discharge. I am also considering other causes of eye lid swelling in light of patient's lack of leukocyotis, fever and erythema of the eye lids. This consideration is also notable in light of patient's significant improvement overnight following steroid treatment. Discharge Plan: Home Plan to discharge in: Greater than 2 days (Spoke with and patient regarding ) - Code Status/Comfort Care Code Status: Full Code
[2018-10-13] MEDS: DOXYCYCLINE 100 MG in NA CHLORIDE 0.9% 100 ML IVPB SCH ×2 (10:38→20:40)
[2018-10-13] MEDS: Levofloxacin 750mg IV 750 MG/150 ML BAG IV SCH (18:03)
[2018-10-14] MEDS: NA CHLORIDE 0.9% 1,000 ML IV SCH ×3 (02:51→15:53)
[2018-10-14] MEDS: DOXYCYCLINE 100 MG in NA CHLORIDE 0.9% 100 ML IVPB SCH ×2 (09:55→20:10)
[2018-10-14] MEDS: ACETAMINOPHEN 500 MG TAB PO PRN ×2 (13:26→20:12)
[2018-10-14] MEDS ORDERED: DOCUSATE NA 100 MG CAP PO PRN (15:05)
--- NOTE | 2018-10-14 15:12 | P.PN ---
Subjective Date of Service: 10/14/18 Chief Complaint: eye swelling and R periorbital pain resolved Subjective: Improving Patient has not gotten any additional steroids and eye swelling has not recurred. He had 2/10 pain this morning and was treated with APAP PO. He is currently on Levaquin IV and Doxycycline IV for MSSA and Klebsiella sinusitis with complication of right pre-septal cellulitis which is improving. Patient complains of constipation to the nurse earlier this morning Physical Examination - Vital Signs Temperature: 97.4 F Blood Pressure: 148/90 Pulse: 70 Respirations: 16 Pulse Ox (%): 98 - Physical Exam General: Alert, In no apparent distress, Oriented x3 HEENT: Atraumatic, Normocephalic, PERRLA, Other (Minimal right upper lid edema, no tenderness of globe or lacrimal gland), EOMI Neck: Supple - Studies Medications List Reviewed: Yes Assessment And Plan - Current Problems (Diagnosis) (1) Preseptal cellulitis of right eye Onset Date: ~10/09/18 Current Visit: Yes Status: Acute Plan: Continue directed Abx with IV Levaquin and doxycycline based on intraoperative cultures from 10/06. Continue to monitor closely and reassess tomorrow. If off steroids for 48 hours and no recurrance of swelling, will plan to d/c home tomorrow later afternoon with PO levaquin. If swelling recurs, consider non- infectious causes, and ophtho consult if possible. If unable to get ophtho consult, consider PO steroid taper at home and FU with ophtho next week. (2) Constipation Onset Date: ~10/14/18 Current Visit: Yes Status: Acute Plan: Start PO Colace BID PRN Discharge Plan: Home Plan to discharge in: 24 Hours
[2018-10-14] MEDS: Levofloxacin 750mg IV 750 MG/150 ML BAG IV SCH (17:35)
[2018-10-15] MEDS: NA CHLORIDE 0.9% 1,000 ML IV SCH (02:52)
[2018-10-15 05:29] LABS: Absolute Lymphocytes (CBC) 2.2 K/uL (0.7-4.9); Absolute Monocytes 0.6 K/uL (0.1-1.3); Absolute Neutrophil 5.1 K/uL (1.8-8.0); Basophils % 0.8 % (0-1.3); Eosinophils % 3.9 % (0-4.4); Hematocrit 34.4 % (39.6-49.0); Lymphocytes % 26.8 % (15.3-44.8); Monocytes % 6.9 % (3.3-12.3); RBC Red Blood Cell Count 3.95 M/uL (4.33-5.43)
[2018-10-15 05:44] LABS: Potassium 3.8 mmol/L (3.5-5.1)
[2018-10-15] MEDS: DOXYCYCLINE 100 MG in NA CHLORIDE 0.9% 100 ML IVPB SCH (08:28)
[2018-10-15 08:53] VITALS: O2SAT 97
[2018-10-15 14:55] VITALS: BP 138/96; TEMP 98
--- NOTE | 2018-10-19 05:56 | DS ---
Date of Discharge: 10/15/2018 Admission Diagnoses: Preseptal cellulitis, uncontrolled surgical pain, sinusitis, chronic of the pansinusitis, nasal polyposis, infection with methicillin-susceptible Staph aureus and Klebsiella pneumoniae. Discharge Diagnoses: same Hospital Course: The patient was admitted. He was placed on IV antibiotics. After 24 hours, there was minimal improvement in his pain or right periorbital swelling. He was then given dexamethasone 8 mg IV q.8 for 24 hours with significant improvement in his symptoms. Due to readmission, decision was made to continue IV antibiotics for a full 4 days to prevent relapse of symptoms. He was much improved on the day of discharge. Discharge Medications: Resume p.o. Levaquin at home. Discharge Instructions: Follow up with Dr. Colindres on Wednesday, October 17. Recommend follow up with primary care physician within the next 1-2 weeks for evaluation of kidney dysfunction, which was incidental to the patient's admission. BRIANNE Voice ID: [id number] Report ID: [id number]
== END 2018-10-15 16:25 | disposition home or self-care (01) | DRG 603 ==
LOC: ER 23:44 → INTOOBSV 10-12 01:53 → ERHOLD 10-12 01:53 → 2ND 10-12 03:14 → OBSVTOIN 10-13 07:44
PROVIDERS: ADMIT Otolaryngology; ATTEND Otolaryngology
DX: L03.213 Periorbital cellulitis (principal); Q61.3 Polycystic kidney, unspecified; I10 Essential (primary) hypertension; Z91.14 Patient's other noncompliance with medication regimen; J01.90 Acute sinusitis, unspecified; J32.9 Chronic sinusitis, unspecified; F17.210 Nicotine dependence, cigarettes, uncomplicated; K59.00 Constipation, unspecified
CPT/HCPCS: 36415; 80048; 81003; 84145; 85025; 85652; 87040; 96365; 96366; 96367; 99285; G0378; J0696; J1100; J2543; J3370; J7030

== ENCOUNTER 2022-11-26 23:57 | Emergency (ER) | payer BC ==
--- OUTSIDE RECORDS SUMMARY | 2022-11-27 00:02 | XMS REPORT | Continuity of Care Document ---
:1970 Author Organization [facility] t Address [address] [place] [address] Care Team Providers Name Role Phone KEVIN CHAMBERLAIN Primary Care Physician Unavailable Tiana MACK, Tena Saavedra Attending Clinician Bryant MACK, Tere Zazueta Attending Clinician [phone] Sharla MACK, Damaris Prabhakar Attending Clinician [phone] KEIVN CHAMBERLAIN Attending Clinician Unavailable [id number] Attending Clinician Unavailable [id number] Attending Clinician Unavailable NILE RODRIGUEZ Attending Clinician Unavailable DR KEVIN CHAMBERLAIN Admitting Clinician Unavailable Payers Payer Name Policy Type Policy Number Effective Date Expiration Date [facility] BLUE [id number] [facility] Problems Condition Condition Condition Status Onset Resolution Last Treating Co mments Source Name Details Category Date Date Treatment Clinician Date Abnormal Abnormal Disease Active Last Metho di ECG ECG 6-[address] 00:00: t & Plan: Hospita 00 Formattin l g of this note might be different from the original. Noninvasi ve testing is unremarka ble Essential Essential Disease Active Last Met hodi hypertensi hypertensi 6-[address] on, benign on, benign 00:00: t & Plan: Hospita 00 Formattin l g of this note might be different from the original. BPs good; on therapy Allergies, Adverse Reactions, Alerts Allergy Allergy Status Severity Reaction(s) Onset Inactive Treating Comm ents Source Name Type Date Date Clinician No Known MA Active UNKNOWN [facility] Family History Family Member Diagnosis Comments Start Date Stop Date Source Natural father Kidney disease [facility] Natural mother [facility] Social History Social Habit Start Date Stop Date Quantity Comments Source Gender identity 2019-12-19 Identifies as [facility] 11:37:20 male gender Hospital (finding) History of tobacco Cigarette Smoker [facility] Sexual orientation [facility] History of Social 2022-10-01 2022-10-[address] function 00:00:00 00:00:00 Hospital Cigarette 2022-09-14 2022-09-14 [facility] 00:[facility]00 00:00:00 Hospital Sex Assigned At [birth year] M [facility]00 [facility] Smoking Status Start Date Stop Date Source Never smoked tobacco [facility] Medications Ordered Filled Start Stop Current Ordering Indication Dosage Frequency Signature Comments Components Source Medication Medication Date Date Medication? Clinician (SIG) Name Name lisinopriL Yes 10mg Q.5D Take 1 Metho di (PRINIVIL) 6-08 tablet (10 st 10 mg 00:00: mg total) Hospita tablet 00 by mouth 2 l (two) times a day. methylPREDN 2022- No follow Met hodi ISolone 10-[address] (MEDROL 00:00: 04:59 directions Hos tim DOSEPAK) 4 00 :00 l mg tablet acetaminoph 2022- [place] [id number] 1{tbl} Q6H Take 1 Methodi en-codeine -10-[address] (TYLENOL 00:00: 04:59 mouth Hospita WITH 00 :00 every 6 l CODEINE #3) (six) 300-30 mg hours as per tablet needed for moderate pain for up to 5 days .acute pain. acetaminoph 2022- [place] [id number] 1{tbl} Q6H Take 1 Methodi en-codeine 3-15 -[address] (TYLENOL 00:00: 04:59 mouth Hospita WITH 00 :00 every 6 l CODEINE #3) (six) 300-30 mg hours as per tablet needed for moderate pain for up to 5 days .acute pain. ondansetron 2023-0 2023- No 4mg Q8H Take 1 Met hodi ODT 3-15 03-21 tablet (4 st (ZOFRAN-ODT 00:00: 04:59 mg total) Hospita ) 4 MG 00 :00 by mouth l disintegrat every 8 ing tablet (eight) hours as needed for nausea or vomiting for up to 5 days. furosemide 2020-0 Yes 20mg Take 20 mg M ethodi (LASIX) 20 7-[address] mg tablet 15:38: as needed. Ho spita 18 l furosemide 2020-0 Yes 20mg Take 20 mg M ethodi (LASIX) 20 7-[address] mg tablet 15:38: as needed. Ho spita 18 l furosemide 2020-0 Yes 20mg Take 20 mg M ethodi (LASIX) 20 7-[address] mg tablet 15:38: as needed. Ho spita 18 l propranoloL 2020-0 Yes 20mg Q.5D Take 20 mg Methodi (INDERAL) 5-[address] 20 MG 00:00: (two) Hospita tablet 00 times a l day. propranoloL 2020-0 Yes 20mg Q.5D Take 20 mg Methodi (INDERAL) 5-[address] 20 MG 00:00: (two) Hospita tablet 00 times a l day. propranoloL 2020-0 Yes 20mg Q.5D Take 20 mg Methodi (INDERAL) 5-[address] 20 MG 00:00: (two) Hospita tablet 00 times a l day. lisinopriL 2020-0 Yes 10mg QD Take 10 mg M ethodi (PRINIVIL) 5-[address] 10 mg 00:00: daily. Hospita tablet 00 l triamterene 2020-0 Yes 1{tbl} QD Take 1 Me thodi -hydrochlor 5-[address] othiazid 00:00: mouth Hospita (MAXZIDE-25 00 daily. l ) 37.5-25 mg per tablet lisinopriL 2020-0 Yes 10mg QD Take 10 mg M ethodi (PRINIVIL) 5-[address] 10 mg 00:00: daily. Hospita tablet 00 l triamterene 2020-0 Yes 1{tbl} QD Take 1 Me thodi -hydrochlor 5-[address] othiazid 00:00: mouth Hospita (MAXZIDE-25 00 daily. l ) 37.5-25 mg per tablet lisinopriL No 10mg QD Take 10 mg Methodi (PRINIVIL) 5-20 06-[address] 10 mg 00:00: 00:00 daily. Hospita tablet 00 :00 l triamterene 2022- No 1{tbl} QD Take 1 M ethodi -hydrochlor [facility]-20 -[facility] mouth Hospita (MAXZIDE-25 00 :00 daily. l ) 37.5-25 mg per tablet Vital Signs Vital Name Observation Time Observation Value Comments Source Systolic blood 2022-10-01 18:03:00 158 mm[Hg] Method [facility] Hospital pressure Diastolic blood 2022-10-01 18:03:00 87 mm[Hg] [facility] pressure Heart rate 2022-10-01 18:03:00 61 /min [facility] Respiratory rate 2022-10-01 18:03:00 15 /min [facility] Oxygen saturation in 2022-10-01 18:03:00 99 /min [facility] Arterial blood by Pulse oximetry Body temperature 2022-10-01 13:34:40 36.17 [facility] Body height 2022-10-01 13:33:00 177.8 cm [facility] Body weight 2022-10-01 13:33:00 104.327 kg [facility] BMI 2022-10-01 13:33:00 33.00 kg/m2 [facility] Systolic blood 2021-12-09 20:14:00 116 mm[Hg] Method [facility] Hospital pressure Diastolic blood 2021-12-09 20:14:00 70 mm[Hg] [facility] pressure Heart rate 2021-12-09 20:14:00 66 /min [facility] Body temperature 2021-12-09 20:14:00 37.06 [facility] Respiratory rate 2021-12-09 20:14:00 16 /min [facility] Body height 2021-12-09 20:14:00 177.8 cm [facility] Body weight 2021-12-09 20:14:00 102.422 kg [facility] BMI 2021-12-09 20:14:00 32.40 kg/m2 [facility] Procedures Procedure Date / Time Performing Clinician Source Performed CT THORACIC SPINE WO 2022-10-01 [facility] 2022-10-01 17:13:[facility] CONTRAST CT RENAL STONE PROTOCOL 2022-10-01 16:48[facility] CHEST [facility] 2022-10-01 15:39:00 [facility] URINE CULTURE 2022-10-01 15:27:00 Jocelyne Will spital COMPREHENSIVE METABOLIC 2022-10-01 15:21:00 [facility] PANEL CBC WITH PLATELET AND 2022-10-01 15:21:00 [facility] DIFFERENTIAL TROPONIN T 2022-10-01 15:21:00 Jocelyne Will spital ESTIMATED GFR 2022-10-01 15:21:00 Jocelyne Will spital SMEAR REVIEW 2022-10-01 15:21:00 Jocelyne Will spital URINALYSIS SCREEN AND 2022-10-01 14:47:[facility]FLEX TO CULTURE ECG ED PRELIMINARY 2022-10-01 14:02:06 [facility] INTERPRETATION ECG 12-LEAD 2022-10-01 13:55:[address] RENAL STONE PROTOCOL 2022-09-03 00:07:06 Ty, [facility] Deirdre CBC WITH PLATELET AND 2022-09-02 23:54:00 Ty, [facility] DIFFERENTIAL Deirdre COMPREHENSIVE METABOLIC 2022-09-02 23:54:00 Ty, [facility] PANEL Deirdre LIPASE LEVEL 2022-09-02 23:54:00 Ty, [facility] Ho spital Deirdre URINALYSIS SCREEN AND 2022-09-02 23:54:00 Ty, [facility] MICROSCOPY, WITH REFLEX Deirdre TO CULTURE ESTIMATED GFR 2022-09-02 23:54:00 [facility] Deirdre URINE CULTURE 2022-09-02 23:45:00 Ty, [facility] Deirdre Plan of Care Planned Activity Planned Date Details Comments Source Future Scheduled 2022-11-26 Screening for [facility] Test 13:57:52 malignant neoplasm of colon (procedure) [code = 691073625] Future Scheduled 2022-11-26 Screening for [facility] Test 13:57:52 malignant neoplasm of colon (procedure) [code = 280225259] Future Scheduled 2022-11-26 HEPATITIS B VACCINES Met [facility] Test 13:57:52 (1 of 3 - 3-dose series) [code = HEPATITIS B VACCINES (1 of 3 - 3-dose series)] Future Scheduled 2022-11-26 Screening for [facility] Test 13:57:52 malignant neoplasm of colon (procedure) [code = 439404597] Future Scheduled 2022-11-26 Pneumococcal Vaccine: [facility] Test 13:57:52 Pediatrics (0 to 5 Years) and At-Risk Patients (6 to 64 Years) (1 - PCV) [code = Pneumococcal Vaccine: Pediatrics (0 to 5 Years) and At-Risk Patients (6 to 64 Years) (1 - PCV)] Future Scheduled 2022-11-26 Hepatitis C screening [facility] Test 13:57:52 (procedure) [code = 851139997] Future Scheduled 2022-11-26 Screening for [facility] Test 13:57:52 malignant neoplasm of colon (procedure) [code = 616184948] Future Scheduled 2022-11-26 Screening for [facility] Test 13:57:52 malignant neoplasm of colon (procedure) [code = 017964569] Future Scheduled 2022-11-26 COVID-19 VACCINE (3 - [facility] Test 13:57:52 Booster for Josué series) [code = COVID-19 VACCINE (3 - Booster for Josué series)] Future Scheduled 2022-11-26 SHINGLES VACCINES (1 Met [facility] Test 13:57:52 of 2) [code = SHINGLES VACCINES (1 of 2)] Future Scheduled 2022-11-26 INFLUENZA VACCINE Method [facility] Test 13:57:52 [code = INFLUENZA VACCINE] Future Scheduled 2022-04-25 Hepatitis C screening [facility] Test 14:21:55 (procedure) [code = 106566220] Future Scheduled 2022-04-25 COLONOSCOPY SCREENING [facility] Test 14:21:55 [code = COLONOSCOPY SCREENING] Future Scheduled 2022-04-25 INFLUENZA VACCINE Method [facility] Test 14:21:55 [code = INFLUENZA VACCINE] Future Scheduled 2022-04-25 HEPATITIS B VACCINES Met [facility] Test 14:21:55 (1 of 3 - 3-dose series) [code = HEPATITIS B VACCINES (1 of 3 - 3-dose series)] Future Scheduled 2022-04-25 COVID-19 VACCINE (#1) [facility] Test 14:21:55 [code = COVID-19 VACCINE (#1)] Future Scheduled 2022-04-25 Pneumococcal Vaccine: [facility] Test 14:21:55 Pediatrics (0 to 5 Years) and At-Risk Patients (6 to 64 Years) (1 - PCV) [code = Pneumococcal Vaccine: Pediatrics (0 to 5 Years) and At-Risk Patients (6 to 64 Years) (1 - PCV)] Future Scheduled 2022-04-25 Hepatitis C screening [facility] Test 14:21:55 (procedure) [code = [id number]] Future Scheduled 2022-04-25 COLONOSCOPY SCREENING [facility] Test 14:21:55 [code = COLONOSCOPY SCREENING] Future Scheduled 2022-04-25 INFLUENZA VACCINE Method [facility] Test 14:21:55 [code = INFLUENZA VACCINE] Future Scheduled 2022-04-25 HEPATITIS B VACCINES Met [facility] Test 14:21:55 (1 of 3 - 3-dose series) [code = HEPATITIS B VACCINES (1 of 3 - 3-dose series)] Future Scheduled 2022-04-25 COVID-19 VACCINE (#1) [facility] Test 14:21:55 [code = COVID-19 VACCINE (#1)] Future Scheduled 2022-04-25 Pneumococcal Vaccine: [facility] Test 14:21:55 Pediatrics (0 to 5 Years) and At-Risk Patients (6 to 64 Years) (1 - PCV) [code = Pneumococcal Vaccine: Pediatrics (0 to 5 Years) and At-Risk Patients (6 to 64 Years) (1 - PCV)] Encounters Start End Encounter Admission Attending Care Care Encounter Source Date/Time Date/Time Type Type Clinicians Facility Department ID 2022-05-27 Outpatient MARCELA MEDRANO [id number] 13:06:39 [id number] [facility] 2022-11-26 2022-11-26 Orders Tiana, 1.2.840.1 [id number] [id number] Methodi 00:00:00 00:00:00 Only [place]al [place]. [address].1.[address] 3.430.2.7 Hospit a .3.632674 l .8 2022-10-01 2022-10-01 Emergency Hurtado, 1.2.840.1 [id number] Methodi 08:35:00 13:04:[address] Marbin 3.430.2.7 Hospit a .3.402482 l .8 2022-10-01 2022-10-01 Travel 1.2.840.1 1.2.550.077 [id number] Methodi 00:00:00 00:00:[address] 3.430.2.7 0.2.7.3.698 Ho spita .3.516878 084.8 l .8 2022-10-01 2022-10-01 Emergency [facility] [id number] 27 Rosalia 00:00:00 00:00:00 TERE [address] 2022-09-14 2022-09-14 Office Tiana, 1.2.840.1 [id number] Methodi 16:00:00 16:49:32 Visit Premal P. 34380.1.[address] 3.430.2.7 Hospit a .3.623193 l .8 2022-09-14 2022-09-14 Travel 1.2.840.1 1.2.496.620 [id number] Methodi 00:00:00 00:00:[address] 3.430.2.7 0.2.7.3.698 Ho spita .3.260475 084.8 l .8 2022-09-14 2022-09-14 Outpatient TIANA, [facility] [id number] 263 Rosalia 00:00:00 00:00:00 PREMAL [address] 2022-09-02 2022-09-02 Emergency Sharla, 1.2.840.1 [id number] Methodi 18:22:00 20:54:[address] Sangeeth 3.430.2.7 Hospi ta Jopaolawin .3.863857 l .8 2022-09-02 2022-09-02 Travel 1.2.840.1 1.2.009.443 [id number] Methodi 00:00:00 00:00:[address] 3.430.2.7 0.2.7.3.698 Ho spita .3.160840 084.8 l .8 2022-09-02 2022-09-02 [id number] Rosalia 00:00:00 00:00:00 DAMARIS [address] 2022-05-27 2022-05-27 [facility] [id number] 13:07:00 13:07:00 [id number] [facility] [id number] [facility]ospita l 2021-12-09 2021-12-09 Office Tiana, 1.2.840.1 [id number] Methodi 15:40:00 15:40:00 Visit Premal P. [address]394.1.[address] 3.430.2.7 Hospit a .3.412660 l .8 2021-12-09 2021-12-09 Office Tiana, 1.2.840.1 [id number] Methodi 15:40:00 15:40:00 [place] Premal P. 31622.1.[address] 3.430.2.7 Hospit a .3.959505 l .8 2021-12-09 2021-12-09 Travel 1.2.840.1 1.2.995.902 [id number] Methodi 00:00:00 00:00:[address] 3.430.2.7 0.2.7.3.698 Ho spita .3.604932 084.8 l .8 2021-12-09 2021-12-09 Travel 1.2.840.1 1.2.056.423 [id number] Methodi 00:00:00 00:00:[address] 3.430.2.7 0.2.7.3.698 Ho spita .3.866358 084.8 l .8 2019-12-28 2019-12-28 [id number] [address] [place] [address] 00:00:00 00:00:00 NILE [address] 2019-12-28 2019-12-28 [facility] [id number] [address] [place] [address] 00:00:00 00:00:00 NILE [address] 2019-12-28 2019-12-28 [facility] [id number] [address] [place] [address] 00:00:00 00:00:00 NILE [address] 2019-12-19 2019-12-19 [facility] [id number] 690 Rosalia 00:00:00 00:00:00 NILE [address] Results Test Description Test Time Test Comments Results Result Comments Source Urine culture 2022-10-02 22:07:00 Test Item Value Reference Range Interpretation Comme nts Urine culture isolate No growth after 24 Specimen InformationSpecimen (test code = 10012-8) hours Source : UrineSpecimen Site: Clean catch [address]2023-04-14 07:04:41 Test Item Value Reference Range Interpretation Comments Ventricular rate (test 60 code = 253) Atrial rate (test code 60 = 255) NH interval (test code 170 = 266) QRSD interval (test 104 code = 260) QT interval (test code 420 = 264) QTC interval (test code 420 = 265) P axis 1 (test code = 11 267) QRS axis 1 (test code = -44 268) T wave axis (test code -15 = 270) EKG impression (test Normal sinus code = 273) rhythm-Left axis deviation-Poor R Wave Progression-Moderate voltage criteria for LVH, may be normal variant ( R in aVL , [place] product )-Abnormal ECG-In automated comparison with ECG of 19-DEC-2019 15:39,-T wave inversion now evident in Inferior leads- [facility]
--- NOTE | 2022-11-27 01:10 | ER ---
Nurse's Notes [facility] Name: Moises Alegria Age: 52 yrs Sex: Male : 1970 Arrival Date: 11/26/2022 Time: 23:57 Bed 8 Private MD: Diagnosis: Subconjunctival hemorrhage, essential hypertension Presentation: 11/27 00:53 Chief complaint: Patient states: "I noticed I had some busted blood vessels in my right pf1 eye at work so they checked my blood pressure and it was 161/100. My technical communication teacher took me off one of my blood pressure meds about 1.5 months ago and for about a week my pressure has been higher. We called my technical communication teacher and they said it may take a little while for my bp to get back to normal and wasn't concerned but my work wants a release and I just want to be sure I am ok.". Coronavirus screen: Vaccine status: Patient reports receiving the 2nd dose of the covid vaccine. plus booster; [employer] Client denies travel out of the [place] in the last 14 days. At this time, the client does not indicate any symptoms associated with coronavirus-19. Ebola Screen: Patient negative for fever greater than or equal to 101.5 degrees Fahrenheit, and additional compatible Ebola Virus Disease symptoms Patient denies exposure to infectious person. Patient denies travel to an Ebola-affected area in the 21 days before illness onset. No symptoms or risks identified at this time. Initial Sepsis Screen: Does the patient meet any 2 criteria? No. Patient's initial sepsis screen is negative. Does the patient have a suspected source of infection? No. Patient's initial sepsis screen is negative. Risk Assessment: Do you want to hurt yourself or someone else? Patient reports no desire to harm self or others. Onset of symptoms is unknown. 00:53 Method Of Arrival: Ambulatory pf1 00:53 Acuity: VICK 4 pf1 Triage Assessment: 01:36 General: Appears in no apparent distress. comfortable, Behavior is calm, cooperative, vc1 appropriate for age. Pain: Denies pain. EENT: No deficits noted. No signs and/or symptoms were reported regarding the EENT system. Neuro: No deficits noted. Cardiovascular: No deficits noted. Respiratory: Airway is patent Respiratory effort is even, unlabored, Respiratory pattern is regular, symmetrical. GI: No deficits noted. No signs and/or symptoms were reported involving the gastrointestinal system. : No deficits noted. No signs and/or symptoms were reported regarding the genitourinary system. Derm: No deficits noted. No signs and/or symptoms reported regarding the dermatologic system. Musculoskeletal: No deficits noted. No signs and/or symptoms reported regarding the musculoskeletal system. Historical: - Home Meds: 00:59 lisinopril Oral [Active]; Propranolol Oral [Active]; Furosemide Oral [Active]; pf1 - PMHx: 00:59 Grade 4 aneurysm; Hypertension; POLYCYSTIC KIDNEY DISEASE; pf1 - PSHx: 00:59 shunt for aneurysm; pf1 - Immunization history:: Client reports receiving the 2nd dose of the Covid vaccine. - Social history:: Smoking status: Patient denies any tobacco usage or history of. Screenin:35 [facility] ED Fall Risk Assessment (Adult) History of falling in the last 3 months, vc1 including since admission No falls in past 3 months (0 pts) Confusion or Disorientation No (0 pts) Intoxicated or Sedated No (0 pts) Impaired Gait No (0 pts) Mobility Assist Device Used No (0 pt) Altered Elimination No (0 pt) Score/Fall Risk Level 0 - 2 = Low Risk Oriented to surroundings, Maintained a safe environment, Educated pt \\T\\ family on fall prevention, incl call for assistance when getting out of bed. Abuse screen: Denies threats or abuse. Nutritional screening: No deficits noted. Tuberculosis screening: No symptoms or risk factors identified. Vital Signs: 00:53 BP 151 / 103; Pulse 60; Resp 18; Temp 98.3; Pulse Ox 100% ; Weight 102.06 kg; Height 5 pf1 ft. 10 in. ; Pain 0/10; 00:53 Body Mass Index 32.28 (102.06 kg, 177.8 cm) pf1 00:53 Pain Scale: Adult pf1 ED Course: 00:00 Patient arrived in ED. ja2 00:35 Lorene Ordoñez MD is Attending Physician. sp3 00:59 Triage completed. pf1 01:01 Arm band placed on right wrist. pf1 01:01 Patient has correct armband on for positive identification. Bed in low position. Call vc1 light in reach. 01:29 Calcote, Priscilla, RN is Primary Nurse. vc1 01:36 No provider procedures requiring assistance completed. Patient did not have IV access vc1 during this emergency room visit. Administered Medications: No medications were administered Medication: 01:37 VIS not applicable for this client. vc1 Outcome: 01:10 Discharge ordered by . sp3 01:37 Discharged to home ambulatory, with significant other. vc1 01:37 Condition: good 01:37 Discharge instructions given to patient, Instructed on discharge instructions, follow up and referral plans. Demonstrated understanding of instructions, follow-up care. 01:37 Patient left the ED. vc1 Signatures: Lorene Ordoñez MD MD sp3 Tawanna Delgado Vanessa RN RN vc1 Marina Bennett RN RN pf1
--- NOTE | 2022-11-27 01:10 | EDPHYS ---
Physician Documentation [facility] Name: Moises Alegria Age: 52 yrs Sex: Male : 1970 Arrival Date: 11/26/2022 Time: 23:57 Bed 8 Private MD: ED Physician Lorene Ordoñez HPI: 11/27 01:07 This 52 yrs old Male presents to ER via Ambulatory with complaints of High sp3 Blood Pressure, Eye Problem. 01:07 52-year-old male with history of hypertension places to kidney disease who had a sp3 subconjunctival hemorrhage at work today was evaluated by the medics and discharged home. Blood pressure was slightly elevated with diastolic of 100 which was not thought to be of concern. Patient went home and discussed with his corporate safety director who agreed and told him to make some slight medication adjustments. He presents today to the ER for clearance to return back to work. He has no symptoms whatsoever he denies any headache, neck pain, changes in his vision, eye pain, facial pain, neck pain, shortness of breath, chest pain, or any other signs or symptoms on ROS at this time.. Historical: - Home Meds: 00:59 lisinopril Oral [Active]; Propranolol Oral [Active]; Furosemide Oral [Active]; pf1 - PMHx: 00:59 Grade 4 aneurysm; Hypertension; POLYCYSTIC KIDNEY DISEASE; pf1 - PSHx: 00:59 shunt for aneurysm; pf1 - Immunization history:: Client reports receiving the 2nd dose of the Covid vaccine. - Social history:: Smoking status: Patient denies any tobacco usage or history of. ROS: 01:08 Constitutional: Negative for fever, chills, and weight loss, ENT: Negative for injury, sp3 pain, and discharge, Neck: Negative for injury, pain, and swelling, Cardiovascular: Negative for chest pain, palpitations, and edema, Respiratory: Negative for shortness of breath, cough, wheezing, and pleuritic chest pain, Abdomen/GI: Negative for abdominal pain, nausea, vomiting, diarrhea, and constipation, Back: Negative for injury and pain, MS/Extremity: Negative for injury and deformity, Skin: Negative for injury, rash, and discoloration, Neuro: Negative for headache, weakness, numbness, tingling, and seizure, Psych: Negative for depression, anxiety, suicide ideation, homicidal ideation, and hallucinations, Allergy/Immunology: Negative for hives, rash, and allergies, Endocrine: Negative for neck swelling, polydipsia, polyuria, polyphagia, and marked weight changes. 01:08 All other systems are negative. Exam: 01:08 Constitutional: This is a well developed, well nourished patient who is awake, alert, sp3 and in no acute distress. Head/Face: Normocephalic, atraumatic. ENT: Nares patent. No nasal discharge, no septal abnormalities noted. External auditory canals are clear. Oropharynx with no redness, swelling, or masses, exudates, or evidence of obstruction, uvula midline. Mucous membranes moist. Neck: Trachea midline, no thyromegaly or masses palpated, and no cervical lymphadenopathy. Supple, full range of motion without nuchal rigidity, or vertebral point tenderness. No Meningismus. Chest/axilla: Normal chest wall appearance and motion. Nontender with no deformity. No lesions are appreciated. Cardiovascular: Regular rate and rhythm with a normal S1 and S2. No gallops, murmurs, or rubs. Normal PMI, no JVD. No pulse deficits. Respiratory: Lungs have equal breath sounds bilaterally, clear to auscultation and percussion. No rales, rhonchi or wheezes noted. No increased work of breathing, no retractions or nasal flaring. Abdomen/GI: Soft, non-tender, with normal bowel sounds. No distension or tympany. No guarding or rebound. No evidence of tenderness throughout. Back: No spinal tenderness. No costovertebral tenderness. Full range of motion. Skin: Warm, dry with normal turgor. Normal color with no rashes, no lesions, and no evidence of cellulitis. 01:08 Eyes: Subconjunctival hemorrhage noted on the right eye both medially and laterally. Anterior chambers clear. Pupils are equal round and reactive to light.. Vital Signs: 00:53 BP 151 / 103; Pulse 60; Resp 18; Temp 98.3; Pulse Ox 100% ; Weight 102.06 kg; Height 5 pf1 ft. 10 in. ; Pain 0/10; 00:53 Body Mass Index 32.28 (102.06 kg, 177.8 cm) pf1 00:53 Pain Scale: Adult pf1 MDM: 01:09 Data reviewed: vital signs, nurses notes. ED course: BP is slightly elevated at sp3 103/100. No interventions indicated in the ER. I am not highly suspicious for any endorgan damage. Patient has no symptoms and would like to be discharged with a work release. He is to follow-up with his corporate safety director for continued medication adjustments as needed. No further intervention is warranted in the ER.. 01:10 Patient medically screened. sp3 Administered Medications: No medications were administered Disposition Summary: 11/27/22 01:10 Discharge Ordered Location: Home sp3 Condition: Stable sp3 Diagnosis - Subconjunctival hemorrhage, essential hypertension sp3 Followup: sp3 - With: Private Physician - When: Upon discharge from the Emergency Department - Reason: Continuance of care Discharge Instructions: - Discharge Summary Sheet sp3 - Hypertension, Adult sp3 - Subconjunctival Hemorrhage sp3 Forms: - Medication Reconciliation Form sp3 - Thank You Letter sp3 - Antibiotic Education sp3 - Prescription Opioid Use sp3 - Work release form vc1 Signatures: Lorene Ordoñez MD MD sp3 Marina Bennett RN RN pf1
[2022-11-27 01:46] VITALS: BP 151/103; TEMP 98.3; O2SAT 100
== END 2022-11-27 01:37 | disposition home or self-care (01) ==
LOC: ER 23:57
DX: H11.31 Conjunctival hemorrhage, right eye (principal); I10 Essential (primary) hypertension; Q61.3 Polycystic kidney, unspecified
CPT/HCPCS: 99282